=== PATIENT | female | born 1940 | race Caucasian/White ===

== ENCOUNTER → 2023-09-01 14:15 | Outpatient (REF) | payer MEDICARE, OTHER, SELFPAY | LOC: REG 14:15 | PROVIDERS: ATTENDING PHYSICIAN Internal Medicine | DX: E10.65 Type 1 diabetes mellitus with hyperglycemia (principal) | CPT/HCPCS: 36415; 83036 ==

== ENCOUNTER → 2023-12-14 08:40 | Outpatient (REF) | payer MEDICARE, OTHER, SELFPAY ==
[2023-12-14 11:55] LABS: ALT (SGPT) 20 U/L (0-35); AST (SGOT) 24 U/L (14-36); Albumin 4.3 g/dl (3.5-5.0); Alkaline Phosphatase 101 U/L (38-126); Blood Urea Nitrogen 21 mg/dl (7-17); Calcium 9.8 mg/dl (8.4-10.2); Carbon Dioxide 24 mmol/L (22-30); Chloride 102 mmol/L (98-107); Glucose 360 mg/dl (70-99); HDL Cholesterol 97 mg/dl; LDL Cholesterol, Calculated 53 mg/dl; Potassium 4.9 mmol/L (3.5-5.1); Sodium 135 mmol/L (135-145); Total Bilirubin 0.6 mg/dl (0.2-1.3); Total Cholesterol 168 mg/dl (50-199); Total Protein 7.1 g/dl (6.3-8.2); Triglyceride 92 mg/dl (10-149); Very Low Density Lipoprotein 18 mg/dl (0-30); eGFR > 60.00
[2023-12-14 14:37] LABS: Glycohemoglobin (HgbA1c) 9.7 % (4.0-5.6)
== END ==
LOC: REG 08:40
PROVIDERS: ATTENDING PHYSICIAN Internal Medicine
DX: E11.3213 Type 2 diabetes mellitus with mild nonproliferative diabetic retinopathy with macular edema, bilateral (principal); I25.10 Atherosclerotic heart disease of native coronary artery without angina pectoris
CPT/HCPCS: 36415; 80053; 80061; 83036

== ENCOUNTER → 2024-03-28 10:03 | Outpatient (REF) | payer MEDICARE, OTHER, SELFPAY ==
[2024-03-28 11:56] LABS: Glycohemoglobin (HgbA1c) 10.7 % (4.0-5.6)
== END ==
LOC: REG 10:03
PROVIDERS: ATTENDING PHYSICIAN Internal Medicine
DX: E10.69 Type 1 diabetes mellitus with other specified complication (principal); Z79.4 Long term (current) use of insulin
CPT/HCPCS: 36415; 83036

== ENCOUNTER → 2024-06-28 07:40 | Outpatient (REF) | payer MEDICARE, OTHER, SELFPAY ==
[2024-06-28 08:11] LABS: % Basophils 0.6 % (0-2); % Immature Granulocytes 0.2 % (0-0.5); % Lymphocytes 24.9 % (20.5-51.1); % Monocytes 6.9 % (1.7-9.3); % Neutrophils 64.4 % (42.2-75.2); Absolute Basophils 0.1 10^3/uL (0-0.2); Absolute Eosinophils 0.3 10^3/uL (0-0.7); Absolute Lymphocytes 2.1 10^3/uL (1.2-3.4); Absolute Monocytes 0.6 10^3/uL (0.1-0.6); Absolute Neutrophils 5.3 10^3/uL (1.4-6.5); Hematocrit 40.3 % (37.0-47.0); Hemoglobin 13.4 g/dL (12.0-16.0); Mean Corp Hgb Conc. 33.3 g/dL (33.0-37.0); Mean Corpuscular Hgb 32.8 pg (27.0-31.0); Mean Corpuscular Volume 98.5 fL (81.0-99.0); Mean Platelet Volume 9.1 fL (7.4-10.4); Nucleated Red Blood Cells % 0 %; Platelet Count 374 10^3/uL (130-400); Red Blood Cell Count 4.09 10^6/uL (4.20-5.40); Red Cell Dist. Width 13.8 % (11.5-14.5); White Blood Cell Count 8.2 10^3/uL (4.8-10.8)
[2024-06-28 08:35] LABS: Urine Albumin Negative (Neg - Trace); Urine Bilirubin Negative (Negative); Urine Character Clear (Clear); Urine Color Yellow; Urine Glucose 4+ (Negative); Urine Ketone Negative (Negative); Urine Leukocyte 2+ (Negative); Urine Nitrite Negative (Negative); Urine Occult Blood Negative (Negative); Urine Urobilinogen Negative (Neg - 1+)
[2024-06-28 08:41] LABS: Urine Hyaline Cast 0-2 /LPF (0-2)
[2024-06-28 08:42] LABS: Urine Red Blood Cell 0-2 /HPF (0-2)
[2024-06-28 08:43] LABS: Urine Bacteria Few (Negative); Urine White Cell 26-30 /HPF (0-5)
[2024-06-28 08:56] LABS: ALT (SGPT) 22 U/L (0-35); AST (SGOT) 24 U/L (14-36); Albumin 4.5 g/dl (3.5-5.0); Alkaline Phosphatase 96 U/L (38-126); Blood Urea Nitrogen 19 mg/dl (7-17); Calcium 10.1 mg/dl (8.4-10.2); Carbon Dioxide 28 mmol/L (22-30); Chloride 102 mmol/L (98-107); Glucose 221 mg/dl (70-99); Potassium 4.9 mmol/L (3.5-5.1); Sodium 138 mmol/L (135-145); Total Bilirubin 0.8 mg/dl (0.2-1.3); Total Protein 7.5 g/dl (6.3-8.2); eGFR > 60.00
[2024-06-28 08:57] LABS: Glycohemoglobin (HgbA1c) 10.8 % (4.0-5.6)
[2024-06-28 09:11] LABS: Microalbumin, Random Urine 0.8 mg/dl (0.6-1.7); Microalbumin/creatinine Ratio 11.8 mg/g
== END ==
LOC: REG 07:40
PROVIDERS: ATTENDING PHYSICIAN Internal Medicine
DX: E10.65 Type 1 diabetes mellitus with hyperglycemia (principal)
CPT/HCPCS: 80053; 81003; 81015; 82043; 82570; 83036; 85025

== ENCOUNTER 2024-08-26 20:59 | Inpatient (IN) | payer MEDICARE, OTHER, SELFPAY ==
[2024-08-26 18:28] VITALS: BP 171/76
[2024-08-26 18:32] VITALS: BMI 21.0
[2024-08-26 18:39] LABS: % Basophils 0.6 % (0-2); % Eosinophils 2.8 % (0-6); % Immature Granulocytes 0.4 % (0-0.5); % Lymphocytes 28.2 % (20.5-51.1); % Monocytes 7.3 % (1.7-9.3); % Neutrophils 60.7 % (42.2-75.2); Absolute Eosinophils 0.2 10^3/uL (0-0.7); Absolute Monocytes 0.5 10^3/uL (0.1-0.6); Absolute Neutrophils 4.3 10^3/uL (1.4-6.5); Hematocrit 36.9 % (37.0-47.0); Hemoglobin 12.7 g/dL (12.0-16.0); Mean Corp Hgb Conc. 34.4 g/dL (33.0-37.0); Mean Corpuscular Hgb 32.9 pg (27.0-31.0); Mean Corpuscular Volume 95.6 fL (81.0-99.0); Mean Platelet Volume 9.3 fL (7.4-10.4); Nucleated Red Blood Cells % 0 %; Platelet Count 327 10^3/uL (130-400); Red Blood Cell Count 3.86 10^6/uL (4.20-5.40); Red Cell Dist. Width 13.6 % (11.5-14.5); White Blood Cell Count 7.1 10^3/uL (4.8-10.8)
--- NOTE | 2024-08-26 18:41 | ED.GENMED ---
History of Present Illness
<Liam Camacho MD, Resident - Last Filed: 08/26/24 20:43>
General
Chief Complaint: Fall
Time Seen by Provider: 08/26/24 18:31
History of Present Illness
History of Present Illness:
This is an 84-year-old female who presents to the ER after a fall episode. She reports right hip pain. Patient states she was standing from a sitting position when her legs gave out and she fell on her right hip. She denies hitting her head on
the floor. She denies dizziness, syncope prior to fall. She denies loss of consciousness. Patient with a history of left hip replacement 5 years ago. She is not on any blood thinners.
Past History
<Liam Camacho MD, Resident - Last Filed: 08/26/24 20:43>
Past History
ED Past Medical History: HTN and IDDM
Social History
Tobacco: Non-smoker
Alcohol: None
Drug: None
Personal:
Living: with family
Review of Systems
<Liam Camacho MD, Resident - Last Filed: 08/26/24 20:43>
Review of Systems
All Other Systems: ROS reviewed and negative except as documented in HPI and ROS
Phy Exam
<Liam Camacho MD, Resident - Last Filed: 08/26/24 20:43>
General Physical Exam
General Presentation: well appearing and no apparent distress
Pulmonary Exam
Pulmonary Exam: lungs clear and no respiratory distress
Musculoskeletal Exam
Musculoskeletal Exam: other (On inspection, right lower extremity externally rotated. tenderness to palpitation over the mid to proximal right femur. Active and passive range of motion of the right hip and knee limited due to severe pain)
Course
<Liam Camacho MD, Resident - Last Filed: 08/26/24 20:43>
Orders/Labs/Results
Orders:
Orders
08/26/24 18:30
CR Hip - RT w/wo Pel 2-3 Vw* Urgent
Comment:
Reason For Exam: fall, injury
Include a pelvis x-ray?: Yes
08/26/24 18:32
Complete Blood Count/With Diff Urgent
Comprehensive Metabolic Panel Urgent
08/26/24 18:44
Morphine Sulfate 2 mg IV NOW ONE
08/26/24 19:59
CR Femur - Right Min 2 Vw Urgent
Comment:
Reason For Exam: right hip pain s/p fall
08/26/24 20:10
EKG [Electrocardiogram (*1)] Urgent
Reason for Study: PreOp
08/26/24 20:18
Admit/Transfer Patient As Directed
Co-Sign Provider:
Level of Care: Inpatient admission
Assign to:: Medical/Surgical
Physician / Group: Gurvinder
Diagnosis: Right Hip Fracture
Reason for Hospitalization: Hip Fracture
Expected length of stay greater than two midnights?: Yes
ELOS- Estimated Length of Stay in days: 3
I certify the patient meets the requirements for IP care: Yes
08/26/24 20:19
PRN Pain Medication Management As Directed
May give lesser potent ordered pain med per pt: Yes
preference::
Protocol:: Medication orders for pain may be administered in a
manner that supports deferring to patient preference
when the pt is:
- Requesting an ordered lesser potent pain medication.
Least to most potent pain medications are defined
as: acetaminophen < NSAID < tramadol < opioids
(morphine, oxycodone, hydromorphone).
- Requesting a lesser dose of the same medication IF
ORDERED.
- Requesting a less intrusive route of administration
if both routes are prescribed by the provider (PO <
IV).
08/26/24 20:20
Code Status As Directed
Resuscitation Status: Full Code
08/26/24 22:00
Insulin Glargine Lantus [Lantus] 6 units Subcutaneous Insulin Syringe [Syringe-Insulin] 0 unit SC HS
Abnormal Lab Results
08/26/24
18:32
RBC 3.86 L 10^6/uL
(4.20-5.40)
Hct 36.9 L %
(37.0-47.0)
MCH 32.9 H pg
(27.0-31.0)
BUN 22 H mg/dl
(7-17)
Glucose 207 H mg/dl
(70-99)
08/26/24 18:32
08/26/24 18:32
Vital Signs
Initial and Last Documented VS:
Initial Vital Signs
Temp Pulse Resp BP Pulse Ox
97.5 F 86 18 171/76 96
08/26/24 18:28 08/26/24 18:28 08/26/24 18:28 08/26/24 18:28 08/26/24 18:28
Last Documented Vital Signs
Temp Pulse Resp BP Pulse Ox
97.5 F 86 18 171/76 96
08/26/24 18:28 08/26/24 18:28 08/26/24 18:28 08/26/24 18:28 08/26/24 18:28
<Pilo Copeland MD - Last Filed: 08/26/24 18:53>
Orders/Labs/Results
Orders:
Orders
08/26/24 18:30
CR Hip - RT w/wo Pel 2-3 Vw* Urgent
Comment:
Reason For Exam: fall, injury
Include a pelvis x-ray?: Yes
08/26/24 18:32
Complete Blood Count/With Diff Urgent
Comprehensive Metabolic Panel Urgent
08/26/24 18:44
Morphine Sulfate 2 mg IV NOW ONE
08/26/24 19:59
CR Femur - Right Min 2 Vw Urgent
Comment:
Reason For Exam: right hip pain s/p fall
08/26/24 20:10
EKG [Electrocardiogram (*1)] Urgent
Reason for Study: PreOp
08/26/24 20:18
Admit/Transfer Patient As Directed
Co-Sign Provider:
Level of Care: Inpatient admission
Assign to:: Medical/Surgical
Physician / Group: Gurvinder
Diagnosis: Right Hip Fracture
Reason for Hospitalization: Hip Fracture
Expected length of stay greater than two midnights?: Yes
ELOS- Estimated Length of Stay in days: 3
I certify the patient meets the requirements for IP care: Yes
08/26/24 20:19
PRN Pain Medication Management As Directed
May give lesser potent ordered pain med per pt: Yes
preference::
Protocol:: Medication orders for pain may be administered in a
manner that supports deferring to patient preference
when the pt is:
- Requesting an ordered lesser potent pain medication.
Least to most potent pain medications are defined
as: acetaminophen < NSAID < tramadol < opioids
(morphine, oxycodone, hydromorphone).
- Requesting a lesser dose of the same medication IF
ORDERED.
- Requesting a less intrusive route of administration
if both routes are prescribed by the provider (PO <
IV).
08/26/24 20:20
Code Status As Directed
Resuscitation Status: Full Code
08/26/24 22:00
Insulin Glargine Lantus [Lantus] 6 units Subcutaneous Insulin Syringe [Syringe-Insulin] 0 unit SC HS
Abnormal Lab Results
08/26/24
18:32
RBC 3.86 L 10^6/uL
(4.20-5.40)
Hct 36.9 L %
(37.0-47.0)
MCH 32.9 H pg
(27.0-31.0)
BUN 22 H mg/dl
(7-17)
Glucose 207 H mg/dl
(70-99)
08/26/24 18:32
08/26/24 18:32
Vital Signs
Initial and Last Documented VS:
Initial Vital Signs
Temp Pulse Resp BP Pulse Ox
97.5 F 86 18 171/76 96
08/26/24 18:28 08/26/24 18:28 08/26/24 18:28 08/26/24 18:28 08/26/24 18:28
Last Documented Vital Signs
Temp Pulse Resp BP Pulse Ox
97.5 F 86 18 171/76 96
08/26/24 18:28 08/26/24 18:28 08/26/24 18:28 08/26/24 18:28 08/26/24 18:28
<Liam Camacho MD, Resident - Last Filed: 08/26/24 20:43>
MDM/Problems Addressed
MDM/Problems Addressed:
84-year-old female who presents to the ER after a fall episode. She reports right hip pain. Patient states she was standing from a sitting position when her legs gave out and she fell on her right hip. On physical examination, right lower
extremity externally rotated. Will evaluate with an x-ray of the hip and pelvis. Pain management with IV morphine.
Update; x-ray of the hip shows intertrochanteric fracture of the proximal right femur. Will admit patients. Discussed with orthopedics (Javed Ham), likely plan for surgery tomorrow
<Liam Camacho MD, Resident - Last Filed: 08/26/24 20:43>
*Critical Care Note
Total Time (30-74mins, 75-104mins- exclusive of procedures): Not Applicable
ED Attending Note
<Liam Camacho MD, Resident - Last Filed: 08/26/24 20:43>
-
Portions of this chart may have been created with voice recognition software.� Occasional wrong word or��sound alike� substitutions may have occurred due to the inherent limitations of voice recognition software.
<Pilo Copeland MD - Last Filed: 08/26/24 18:53>
ED Attending Note
Patient seen and examined by attending physician: Yes
I performed a history and physical exam of patient and discussed management with resident, I reviewed resident's note and agree with documented findings and plan of care.: Yes
ED Attending Note:
84-year-old female legs gave out from a sitting position landing on her right hip. No syncope no chest pain no shortness of breath no head injury or other complaint. Unable to bear weight secondary to pain.
On exam patient is nontoxic in no distress. She has slight hours rotation to the right leg with some questionable minimal shortening. She is in no respiratory distress. No chest wall tenderness. She normocephalic/atraumatic. Neck is nontender.
Other extremities are unremarkable. She is good lower extremity strength.
She also has tenderness over the greater trochanter. Pelvis is stable.
High suspicion for hip fracture right hip. Workup in progress. Pain management hip x-ray.
Discharge Plan
Departure
Patient Disposition: Admit
Date of Disposition: 08/26/24
Time of Disposition: 19:57
Presentation/result/management discussed w/ accepting MD/DO: Hospitalist
Discharge Problem:
Right hip fracture
Prescriptions:
No Action
cholecalciferol (vitamin D3) 2,000 UNIT tablet
2,000 unit PO DAILY
Patient Comments:
Pt does not know brand or dose.
carvedilol 3.125 MG tablet
3.125 mg PO BID Qty: 60 6RF
aspirin 81 MG tablet,chewable
81 mg PO DAILY Qty: 30 0RF
lisinopril 2.5 MG tablet
2.5 mg PO DAILY Qty: 30 6RF
insulin asp prt-insulin aspart [Novolog Mix 70-30 U-100 Insuln] 100 unit/mL (70-30) Solution
16 unit SC DAILY
insulin asp prt-insulin aspart [Novolog Mix 70-30 U-100 Insuln] 100 unit/mL (70-30) solution
10 unit SC QPM
rosuvastatin 5 mg tablet
5 mg PO QPM
Referrals:
Phan Barragan MD [Family Provider] -
Interventions
Interventions:
*Risk Screen - Suicide Last Done: 08/26/24 18:29
*General Assessment Last Done: 08/26/24 18:29
*Neglect/Abuse Screening Last Done: 08/26/24 18:29
*ED- Fall Risk Assessment Last Done: 08/26/24 18:29
*ED COVID-19 Vaccine History Last Done: 08/26/24 18:29
ED-Musculoskeletal Assessment Last Done: 08/26/24 18:41
ED- Neurological Assessment Last Done: 08/26/24 18:31
ED-Skin Assessment Last Done: 08/26/24 18:41
Discharge Date and Time
Print Language: CITIZEN OF [place]
[2024-08-26 18:56] LABS: ALT (SGPT) 22 U/L (0-35); AST (SGOT) 23 U/L (14-36); Albumin 4.6 g/dl (3.5-5.0); Alkaline Phosphatase 88 U/L (38-126); Blood Urea Nitrogen 22 mg/dl (7-17); Calcium 9.7 mg/dl (8.4-10.2); Carbon Dioxide 23 mmol/L (22-30); Chloride 105 mmol/L (98-107); Estimated Creatinine Clearance 44 ml/min; Glucose 207 mg/dl (70-99); Potassium 4.4 mmol/L (3.5-5.1); Sodium 140 mmol/L (135-145); Total Bilirubin 0.5 mg/dl (0.2-1.3); Total Protein 7.5 g/dl (6.3-8.2); eGFR > 60.00
[2024-08-26] MEDS: MORPHINE SULFATE 2 MG IV (18:58)
--- NOTE | 2024-08-26 19:00 | EDRN ---
Report received, patient given pain medication and then placed on bedpan to urinate and have a bowl movement, family at bedside at this time.
--- NOTE | 2024-08-26 20:27 | HPS.HSE ---
Addendum entered and electronically signed by Sree Hollins DO 08/26/24 20:58:
Patient seen and examined independently. Agree with findings and plan as set forth by Sosa Stewart PA-C.
Patient is an 84y F with PMH significant for ASCVD, DM-I and osteoporosis s/p 5 years of Fosamax who presents to ED complaining of R hip pain s/p fall at home. Patient states that she stood and her RLE 'gave out' causing her to fall. No
prodrome of lightheadedness, dizziness, chest pain or dyspnea. No recent illness, cough, fevers / chills, etc. Patient noted pain in the R hip / groin after the fall. She had a similar episode about 5 yrs ago in [facility]. Underwent L SHIRA at
[facility] at that time.
Ass:
Right Hip Fracture
Fall at Home
ASCVD
DM-I
Plan:
Admit for further evaluation and treatment.
Pain control / supportive care overnight.
EKG is unremarkable and much improved from prior tracings (from her [facility] admission in 2019).
Patient is at increased risk for complications due to CAD, DM-I, etc.
Benefits of planned procedure outweigh these potential risks and patient is OK to proceed without additional pre-op evaluation(s).
Post-op care per Ortho.
Change 70/30 to basal insulin + SSI. Adjust dosing as needed post-op / when diet resumed.
Continue ASA uninterrupted.
Original Note:
Family Physician
-
Family Physician: Phan Barragan
Chief Complaint
-
Right Hip Pain
History of Present Illness
Patient is a 84 y/o female past medical history of CAD, IDDM, and osteoporosis with prior left hip fracture who presents with a fall and right hip pain. Patient stood up from a chair and she notes her leg just gave out and she fell. She denies
hitting her head during the event, but is complaining about right hip pain. She reports event is similar to when she broke her left hip several years ago.
Medical History
Past Medical History
Past Medical History: Reports Other
Additional Past Medical History:
Coronary Artery Disease s/p RCA Stent 2019
Diabetes Mellitus, Type I
Osteoporosis
Past Surgical History: Reports Other
Additional Past Surgical History:
Left Hip Replacement
Social History
Tobacco: Non-smoker
Alcohol: None
Personal:
Living: With Family
Family History
Family History: Not pertinent
Allergies / Home Medications
Allergies reflects when Allergies were last updated in [employer].
Home Medications with original date entered in [employer]
Allergy/Medication List:
Allergies
Allergy/AdvReac Type Severity Reaction Status Date / Time
bacitracin Allergy Unknown Verified 08/13/20 15:12
[From Neosporin
([id number])]
neomycin Allergy Unknown Verified 08/13/20 15:12
[From Neosporin
([id number])]
polymyxin B Allergy Unknown Verified 08/13/20 15:12
[From Neosporin
([id number])]
Home Medications
cholecalciferol (vitamin D3) 50 mcg (2,000 unit) tablet 2,000 unit PO DAILY 08/05/18
aspirin 81 mg chewable tablet 81 mg PO DAILY ##30 08/07/18
carvedilol 3.125 mg tablet 3.125 mg PO BID ##60 08/07/18
lisinopril 2.5 mg tablet 2.5 mg PO DAILY ##30 08/07/18
insulin aspar prt-insulin aspart 100 unit/mL (70-30) subcutaneous soln (Novolog Mix 70-30 U-100 Insuln) 10 unit SC QPM 08/26/24
insulin aspar prt-insulin aspart 100 unit/mL (70-30) subcutaneous soln (Novolog Mix 70-30 U-100 Insuln) 16 unit SC DAILY 08/26/24
rosuvastatin 5 mg tablet 5 mg PO QPM 08/26/24
Review of Systems
-
History Source: Patient
A 12 point ROS was completed and negative except as noted: Yes
Constitutional: Denies Fever or Chills
Respiratory: Denies Cough or Trouble Breathing
Cardiac: Denies Chest Pain or Palpitations
Abdomen/GI: Denies Abdominal Pain, Nausea, Vomiting, Diarrhea or Constipated
Musculoskeletal: Reports See HPI
Physical Exam
Vital Signs
Vital Signs
Temp Pulse Resp BP Pulse Ox
97.5 F 86 18 171/76 96
08/26/24 18:28 08/26/24 18:28 08/26/24 18:28 08/26/24 18:28 08/26/24 18:28
Physical Exam
General: Well Developed, Well Nourished and No Apparent Distress
HEENT: NormoCephalic, Anicteric, Moist mucous membranes and Atraumatic
Respiratory: Clear and Non Labored Respirations; No Wheezes, Rales or Rhonchi
Cardiac: S1/S2 and Regular Rhythm; No Murmur
GI: Soft, Non Tender, Non Distended and Normal Bowel Sounds
Rectal: Deferred by Provider
Musculoskeletal: No Clubbing, No Cyanosis, No Edema and Other (RLE shortened and externally rotated)
Skin: Warm and Dry; No Rash
Neuro: Awake, Alert, Oriented and Nonfocal/grossly intact
Psych: Calm
Laboratory Results
-
08/26/24 18:32
08/26/24 18:32
Laboratory Results
Total Bilirubin 0.5 mg/dl (0.2-1.3) 08/26/24 18:32
AST 23 U/L (14-36) 08/26/24 18:32
ALT 22 U/L (0-35) 08/26/24 18:32
Alkaline Phosphatase 88 U/L (38-126) 08/26/24 18:32
Data Reviewed
-
Diagnostic Radiology: Report Reviewed by me
Lab Data: Labs Reviewed by me
Impression/Plan
-
Right Hip Fracture
-Consult Ortho
-NPO after midnight for possible OR tomorrow
-Continue pain control
Coronary Artery Disease s/p RCA stent 2018
-Continue aspirin
-Continue BB, NELSON and Statin
Diabetes Mellitus, Type II
-Transition NovoLog 70/30 to Lantus as patient will be NPO
-Give Lantus 6 units tonight
-Monitor sugars and continue coverage insulin
DVT proph: SCDs
Code Status: Full Code
--- NOTE | 2024-08-26 20:42 | EDRN ---
Dr. Hollins at bedside working on admission
[2024-08-26 20:52] VITALS: BP 133/56
--- NOTE | 2024-08-26 21:01 | EDRN ---
Patient provided with lunch box to eat, NPO at midnight
[2024-08-26 21:41] VITALS: BP 124/65; BMI 20.7
[2024-08-26] MEDS: DILAUDID 0.25 MG IV (22:28)
[2024-08-26] MEDS: LANTUS 0.06 UNITS SC (23:11)
[2024-08-26 23:14] VITALS: BP 127/64
[2024-08-27] VITALS (10 sets, daily range): BP systolic 96–144; BP diastolic 44–79; BMI 20.8
--- NOTE | 2024-08-27 00:51 | PTCARENOTE ---
21:30 pt rec'vd from ED dx r hip fx. Pt aaox3 able to make needs known, r hip with trace edema ext rotated, it was explained no bruising noted at this time however there may be bruising developing, vs WNL, pt is non wt bearing to right purewick in
place .
[2024-08-27 05:41] LABS: Glucose - Point of Care 369 mg/dl (70-99)
[2024-08-27] MEDS: NOVOLOG FLEXPEN-MODERATE RESISTANCE 9 UNITS SC (07:13)
[2024-08-27] MEDS: ZESTRIL 2.5 MG PO (08:03)
[2024-08-27] MEDS: LOW STRENGTH ASPIRIN 81 MG PO (08:03)
[2024-08-27] MEDS: COREG 3.125 MG PO (08:03)
--- NOTE | 2024-08-27 08:04 | W.PN.UPDATE ---
Update Note
Progress Note Update
Patient seen and examined this morning. Chart reviewed
84-year-old female with diabetes with right intertrochanteric femur fracture
Nonweightbearing right lower extremity
N.p.o.
Please hold anticoagulation
Will discuss with primary service regarding blood glucose optimization in preparation for OR
Medical management per primary team
2 OR today pending or availability and medical clearance
Formal consult note to follow
[2024-08-27] MEDS: NOVOLOG FLEXPEN 10 UNITS SC (08:23)
[2024-08-27] MEDS: LANTUS 0.05 UNITS SC (08:39)
--- NOTE | 2024-08-27 08:47 | PN.DE.MGMTRT ---
Insulin Management
- -
08/27/2024: Diabetes Management Consult
84 year old female with PMH: CAD, Osteoporosis, hx of L hip fx s/p fall, and T1DM. Pt presented to the ED complaining of R hip pain s/p fall at home.
She was taking 70/30 [id number] units in AM and 10 units in PM. Last A1C was 10.8% on 06/28/24. Cr 0.8, eGFR >60.
Pt was Dx with T1DM at the age of 18.
Pt is awake, alert, oriented, resting in bed in mild discomfort from hip pain, no specific complaints, able to discuss diabetes care plan.
She reports that she dose not monitor her blood sugars at home. She has been offered a glucose monitor but has declined it stating that ' I am 84 years old, I don't really want to stress myself with poking my finger.
She states that she has learned over the years, not to stress about lowering her blood sugars and that she becomes symptomatic with diaphoresis when her blood sugar gets close to 200. Recommended pt get a script for a CGM from her PCP.
Pt is NPO for OR, she is noted for Hyperglycemia as high as 400 V this morning. Pt received Lantus 5 units @ HS last night, Dr. Hernandez has ordered her an additional 5 units of Lantus this morning and 10 units of aspart.
Glucose has improved from 400 to 215 after aspart. Extensively discussed with pt increased risk of diabetes related complications and emphasized optimal glucose control to promote wound healing especially in the post op period.
Will resume her OP regimen NovoLog 70/30, 10 units tonight post-op if medically stable and diet has been resumed and 16 units tomorrow morning.
Will closely monitor glucose trend while NPO and make further adjustments to current regimen if necessary.
Diabetes History
- -
Type of Diabetes: 1
Pre-Admission Diabetes Regimen
08/26/24
18:32
Creatinine 0.8
Insulin Pump Settings
IP Diabetes Regimen
08/26/24 08/27/24
18:32 05:40
Glucose 207 H
POC Glucose 369 H
Patient Education
[2024-08-27 08:54] LABS: Hematocrit 35.5 % (37.0-47.0); Hemoglobin 12.2 g/dL (12.0-16.0); Mean Corp Hgb Conc. 34.4 g/dL (33.0-37.0); Mean Corpuscular Hgb 32.7 pg (27.0-31.0); Mean Corpuscular Volume 95.2 fL (81.0-99.0); Mean Platelet Volume 10.2 fL (7.4-10.4); Platelet Count 344 10^3/uL (130-400); Red Blood Cell Count 3.73 10^6/uL (4.20-5.40); Red Cell Dist. Width 13.6 % (11.5-14.5); White Blood Cell Count 13.6 10^3/uL (4.8-10.8)
[2024-08-27 09:11] LABS: Blood Urea Nitrogen 21 mg/dl (7-17); Calcium 9.5 mg/dl (8.4-10.2); Carbon Dioxide 23 mmol/L (22-30); Chloride 103 mmol/L (98-107); Estimated Creatinine Clearance 42 ml/min; Glucose 400 mg/dl (70-99); Potassium 5.8 mmol/L (3.5-5.1); Sodium 137 mmol/L (135-145); eGFR > 60.00
[2024-08-27 10:03] LABS: Glucose - Point of Care 215 mg/dl (70-99)
--- NOTE | 2024-08-27 11:54 | CM ---
CM following re: discharge planning.
Reviewed pt's chart, met with pt.
Pt is an 84 year old female admitted with primary dx of Right Hip Fracture. OR today.
Pt reports she lives with 2SH, 2 steps to enter, stays on the first floor. Pt reports she has son and he lives in [place]. Pt described herself as independent in all areas [employer]. Pt is aware of OR today and pt stated she knows she needs a short
term rehabilitation prior to returning back home. Pt is requested [facility] as number 1 choice. Alternative: [facility] or [facility]
CM will make a referral to [facility], [facility] and [facility] after surgery and PT/OT evaluations.
PCP: Hakan Puckett
Pharmacy: [facility].
D/C plan: Plan A: [facility]; Plan B: [facility] or [facility].
CM will follow with discharge plan updates as hospitalization progresses
--- NOTE | 2024-08-27 11:59 | W.PN.HOSP.TC ---
Today's Communication/Plan
-
await repeat glucose level
tentative OR today
Assessment / Plan
Assessment / Plan
Assessment:
Mechanical Fall
R hip fracture, acute, traumatic
- Xray: intertrochanteric fracture of the right hip
- continue pain control
- Orthopedics consulted; for OR today
- benefits of procedure outweigh risks, can proceed with surgery at intermediate risk, without additional testing
Type 1 diabetes, uncontrolled
- BS 369, goal is <200 for surgery; repeat check pending at noon
- continue basal/bolus insulin
- [employer] team consulted
Coronary Artery Disease s/p RCA stent 2018
- continue aspirin/BB/NELSON/Statin
DVT ppx: SCDs
Code: Full
Anticipated Discharge: > 48 hours
Subjective/Interval History
-
Date of Service: August 27, 2024
resting comfortably, no complaints
Objective Data
-
Labs:
Laboratory Results
08/27/24 08/27/24 08/27/24
05:33 06:00 08:06
WBC 13.6 H Cancelled
Hgb 12.2 Cancelled
Hct 35.5 L Cancelled
Plt Count 344 Cancelled
Sodium 137
Potassium 5.8 H D
Chloride 103
Carbon Dioxide 23
BUN 21 H
Creatinine 0.8
Glucose 400 H
Calcium 9.5
Vital Signs:
Vital Signs
Temp Pulse Resp BP Pulse Ox
97.9 F 106 17 144/70 96
08/27/24 07:07 08/27/24 08:03 08/27/24 07:07 08/27/24 08:03 08/27/24 07:07
I&O
08/26/24 08/27/24 08/28/24
06:59 06:59 06:59
Intake Total 0 / 0
Balance 0 / 0
Physical Exam
-
General: No Apparent Distress
HEENT: Normocephalic and Atraumatic
Respiratory: Negative Wheezes
Cardiac: Regular Rhythm and S1/S2
GI: Soft and Nontender
Musculoskeletal: Other (RLE shortened and externally rotated)
Neuro: AO x 3
Psych: Calm
Data Reviewed
-
Total Time Spent with Patient (in minutes): 42
Labs: Labs Reviewed by me
[2024-08-27 12:02] LABS: Glucose - Point of Care 128 mg/dl (70-99)
[2024-08-27] MEDS: NOVOLOG FLEXPEN-MODERATE RESISTANCE SC (12:35)
--- NOTE | 2024-08-27 14:30 | PTCARENOTE ---
Telephone report given to SKEIN YARN DYERLAURA Centeno, received approval for patient's request to be sent with hear aids (and storage cup); patient gave ring to her ; Transport picked up patient in bed @14:30; and son at bedside and given directions
to [facility] waiting room with cell phone.
[2024-08-27 14:56] LABS: Glucose - Point of Care 182 mg/dl (70-99)
--- NOTE | 2024-08-27 15:06 | CON.ORTHO ---
Consultation
-
Date/Time Consultation Performed: 08/27/2024 730 AM
Consultation - Orthopedics
History
84-year-old female with history of type 1 diabetes presented to the emergency department status post fall with complaints of right hip pain and inability to bear weight. She was subsequently admitted to the hospitalist service. Orthopedics is
consulted for further evaluation and treatment. This morning patient is complaining pain more localized to the right groin. Pain is made worse with direct palpation affected area with attempted ambulation. She reports she fell while in [place]
[facility] approximately 5 years ago and underwent left total hip arthroplasty for fracture at [facility]. She reports that yesterday she got up from a chair at home and her right leg gave out on her and fell.
Allergies / Home Medications
Past medical history: Coronary artery disease diabetes osteoporosis
Past surgical history: Left total hip arthroplasty, stent placement cardiac
Family history: Not pertinent
Social history: Lives at home,
Allergy/AdvReac Type Severity Reaction Status Date / Time
bacitracin Allergy Unknown Verified 08/13/20 15:12
[From Neosporin
([id number])]
neomycin Allergy Unknown Verified 08/13/20 15:12
[From Neosporin
([id number])]
polymyxin B Allergy Unknown Verified 08/13/20 15:12
[From Neosporin
([id number])]
�Medication �Instructions �Recorded
cholecalciferol (vitamin D3) 50 2,000 unit PO DAILY 08/05/18
mcg (2,000 unit) tablet
aspirin 81 mg chewable tablet 81 mg PO DAILY ##30 08/07/18
carvedilol 3.125 mg tablet 3.125 mg PO BID ##60 08/07/18
lisinopril 2.5 mg tablet 2.5 mg PO DAILY ##30 08/07/18
insulin aspar prt-insulin aspart 10 unit SC QPM 08/26/24
100 unit/mL (70-30) subcutaneous
soln (Novolog Mix 70-30 U-100
Insuln)
insulin aspar prt-insulin aspart 16 unit SC DAILY 08/26/24
100 unit/mL (70-30) subcutaneous
soln (Novolog Mix 70-30 U-100
Insuln)
rosuvastatin 5 mg tablet 5 mg PO QPM 08/26/24
Vital Signs / Lab Results
Temp Pulse Resp BP Pulse Ox
97.9 F 106 17 144/70 96
08/27/24 07:07 08/27/24 08:03 08/27/24 07:07 08/27/24 08:03 08/27/24 07:07
08/27/24 08:06
08/27/24 06:00
10 point review systems reviewed and negative unless otherwise stated
General: Pleasant, no acute distress at rest
Musculoskeletal right lower extremity
Skin intact, no erythema or ecchymotic staining
Extremity shortened externally rotated
Tenderness palpation over groin or lateral trochanteric flare
No palpable ipsilateral knee effusion
Positive EHL, FHL, ankle dorsiflexion, plantarflexion
Brisk cap refill
No other areas of bony tenderness palpation or crepitation of long bones or joints
Diagnostic studies
X-rays right hip reviewed by myself show mildly displaced right intertrochanteric femur fracture
Assessment / Plan
84-year-old female history of diabetes with right intertrochanteric femur fracture. I had a long detailed discussion with the patient diagnosis and treatment options. We discussed both surgical nonsurgical options. After discussion we mutually to
proceed with insertion of cephalomedullary nail construct for fixation of right intertrochanteric femur fracture. We discussed risks benefits and alternatives to surgery. We discussed the usual expected perioperative postoperative course. No
guarantees were given. Specifically we discussed her poorly controlled diabetes with elevated blood glucose. Explained this would place her high risk of infection as well as healing complications. Blood glucose was significantly elevated this
morning. Repeat monitoring throughout the day showed improvement to the point where is acceptable to proceed to the OR.
Nonweightbearing right lower extremity
N.p.o.
Please hold anticoagulation preparation for OR
Medical management per primary team
Plan: 2 OR today for operative fixation right intertrochanteric femur fracture pending OR availability and medical clearance
--- NOTE | 2024-08-27 16:13 | OR.RPT ---
Operative Report
Operative Report
Date
August 27, 2024
Anesthesia Type:
General
Operative Indications:
Right intertrochanteric femur fracture
Operative Findings :
Same
Complications:
None
Implants:
10 mm x 125 degree Adrian short gamma nail, 95 mm cephalomedullary screw, 35 x 5 mm distal interlocking screw
Procedure and Technique:
Insertion right short cephalomedullary nail
INDICATIONS FOR PROCEDURE:
84-year-old patient presented status post mechanical fall. They were subsequently diagnosed with a peritrochanteric femur fracture. Orthopedics was consulted for further evaluation and treatment. After discussion with the patient and family,
the decision was made to proceed with operative intervention in the form of short cephalomedullary nail. A long discussion was had regarding risks and benefits of procedure. Risks include but are not limited to infection, blood loss, damage to
surrounding structures, persistent pain, loss of function, need for repeat surgery, implant cut out, periprosthetic fracture, DVT/PE and adverse risks of anesthesia. Benefits include early mobilization and fracture stabilization. After discussion
written informed consent was obtained.
OPERATIVE PROCEDURE:
The patient was seen and identified in the preoperative holding area. The operative extremity was marked and all questions were addressed with the patient. Patient was taken to the operating room and provided anesthesia by the anesthesia team.
They were placed supine on a radiolucent fracture table. The nonoperative extremity was placed in a scissored position in a well-padded fracture boot. Operative extremity was placed in a well-padded fracture boot. Biplanar fluoroscopy confirmed
appropriate reduction after axial traction, adduction and slight internal rotation of the operative extremity. Operative extremity was then prepped and draped in normal sterile fashion. Timeout was performed again identifying the operative
extremity correctly. Preoperative antibiotics were addressed.
A small incision was made several fingerbreadths proximal to the greater trochanter. Sharp dissection was carried through skin and subcutaneous tissues and deep fascial layers. Guidepin was then inserted under biplanar fluoroscopic guidance
through the tip of the greater trochanter in accordance with the implant's operative technique. This was inserted to a depth just distal to the lesser trochanter. Proximal opening reamer was then utilized. A short cephalomedullary nail was then
inserted to the appropriate depth. Trocar was then inserted through the aiming arm. Sharp dissection was then carried through skin and subcutaneous tissues as well as deep fascial layers for an additional stab incision for the cephalomedullary
screw. Guidewire was inserted through the trocar into the femoral neck and head. Appropriate position was confirmed under biplanar fluoroscopy. Attention was made to minimize the tip apex distance. Measurements were obtained for the
cephalomedullary screw. Cannulated drill was then utilized to the appropriate depth followed by the insertion of cannulated cephalomedullary screw. Appropriate final position of the screw within the confines of the femoral neck and head was
confirmed again on biplanar fluoroscopy. Setscrew was deployed. Additional trocar was then inserted through the aiming arm for the distal interlocking screw. Sharp dissection was carried through skin, subcutaneous tissues and deep fascial layers.
Appropriate length interlocking screw was then drilled and inserted. Final appropriate positioning was confirmed again on biplanar fluoroscopy. Satisfied with the extent of surgery, wounds were copiously irrigated with normal saline solution and
closed in a layered fashion utilizing 0 Vicryl for deep fascial layer, 2-0 Vicryl for subcu cutaneous layer and james for skin. Sterile dressings were applied. Anesthesia was reversed and patient was taken to the operating room in a stable
condition. Postoperative plan to include weightbearing the patient's tolerance upper extremity. Recommend DVT prophylaxis renally dosed Lovenox x 28 days. Plan to see patient back in the office in 2 weeks for repeat clinical evaluation removal
james
Disposition:
PACU stable condition
[2024-08-27 16:30] LABS: Glucose - Point of Care 159 mg/dl (70-99)
[2024-08-27 18:00] LABS: Glucose - Point of Care 193 mg/dl (70-99)
[2024-08-27] MEDS: NSS 1000 IV (18:05)
[2024-08-27] MEDS: NOVOLOG FLEXPEN-MODERATE RESISTANCE 1 UNITS SC (18:05)
[2024-08-27] MEDS: CRESTOR 5 MG PO (18:10)
[2024-08-27] MEDS: COLACE 100 MG PO (19:41)
[2024-08-27 21:04] LABS: Glucose - Point of Care 399 mg/dl (70-99)
[2024-08-27] MEDS: ANCEF 5 IV (21:23)
[2024-08-27] MEDS: LANTUS 0.06 UNITS SC (21:24)
[2024-08-27] MEDS: COREG PO (21:44)
[2024-08-28] VITALS (7 sets, daily range): BP systolic 76–124; BP diastolic 44–68; PULSE 102–105; O2SAT 98–100; BMI 22.5
[2024-08-28] MEDS: ANCEF 5 IV (05:23)
[2024-08-28 06:34] LABS: Glucose - Point of Care 443 mg/dl (70-99)
[2024-08-28 06:57] LABS: Blood Urea Nitrogen 29 mg/dl (7-17); Calcium 8.7 mg/dl (8.4-10.2); Carbon Dioxide 23 mmol/L (22-30); Chloride 102 mmol/L (98-107); Estimated Creatinine Clearance 34 ml/min; Glucose 454 mg/dl (70-99); Potassium 4.6 mmol/L (3.5-5.1); Sodium 137 mmol/L (135-145)
[2024-08-28] MEDS: NOVOLOG FLEXPEN-MODERATE RESISTANCE 11 UNITS SC (06:57)
[2024-08-28 07:13] LABS: Hematocrit 27.6 % (37.0-47.0); Hemoglobin 9.7 g/dL (12.0-16.0); Mean Corp Hgb Conc. 35.1 g/dL (33.0-37.0); Mean Corpuscular Hgb 33.6 pg (27.0-31.0); Mean Corpuscular Volume 95.5 fL (81.0-99.0); Platelet Count 299 10^3/uL (130-400); Red Blood Cell Count 2.89 10^6/uL (4.20-5.40); Red Cell Dist. Width 13.9 % (11.5-14.5); White Blood Cell Count 14.9 10^3/uL (4.8-10.8)
--- NOTE | 2024-08-28 08:00 | PN.DE.MGMTRT ---
Insulin Management
- -
08/28/2024: Diabetes Management Consult Follow up
Patient admitted with R hip pain s/p mechanical fall. PMH: CAD, Osteoporosis, hx of L hip fx s/p fall, and T1DM. She was taking 70/30 insulin 16 units in AM and 10 units in PM. Last A1C was 10.8% on 06/28/24. Cr 0.8, eGFR >60.
Pt was Dx with T1DM at the age of 18.
POD 1 s/p nail repair R femur. Pt is awake, alert, oriented, resting in bed in mild discomfort from hip pain, no specific complaints, able to discuss diabetes care plan.
Yesterday she stated that she dose not monitor her blood sugars at home. She has been offered a glucose monitor but has declined it stating that ' I am 84 years old, I don't really want to stress myself with poking my finger. Today discussed the
importance of glucose control and the importance of healing and she agreed to new meter. Provided and instructed on use of Contour Next meter.
Patient glucose range 182 to 400. Patient received lantus 6 units and moderate corrective insulin.
Will resume 70/30 novolog this AM 15 units BID with moderate corrective. May require increase of AM 70/30.
Discussed with nurse.
Will follow.
Diabetes History
- -
Type of Diabetes: 1
Pre-Admission Diabetes Regimen
08/27/24 08/28/24
06:00 05:48
Creatinine 0.8 1.0
Lab Results
Hemoglobin A1c 10.0 % (4.0-5.6) H 08/27/24 05:33
Insulin Pump Settings
IP Diabetes Regimen
08/27/24 08/27/24 08/27/24
06:00 10:02 12:00
Glucose 400 H
POC Glucose 215 H 128 H
08/27/24 08/27/24 08/27/24
14:46 16:29 17:59
Glucose
POC Glucose 182 H 159 H 193 H
08/27/24 08/28/24 08/28/24
21:02 05:48 06:32
Glucose 454 H*
POC Glucose 399 H 443 H
Meal type: Lunch
Meal type: Breakfast
Patient Education
[2024-08-28] MEDS: ZESTRIL 2.5 MG PO (08:27)
[2024-08-28] MEDS: LOVENOX 40 MG SC (08:28)
[2024-08-28] MEDS: LOW STRENGTH ASPIRIN 81 MG PO (08:28)
[2024-08-28] MEDS: COREG 3.125 MG PO (08:28)
[2024-08-28] MEDS: COLACE PO ×2 (08:36→20:53)
[2024-08-28] MEDS: NSS 1000 IV (08:47)
[2024-08-28] MEDS: NOVOLOG MIX 70/30 FLEXPEN 15 UNITS SC ×2 (08:59→17:14)
[2024-08-28 09:31] LABS: Glucose - Point of Care 348 mg/dl (70-99)
--- NOTE | 2024-08-28 11:04 | W.PN.HOSP.TC ---
Today's Communication/Plan
-
BS monitoring and insulin adjustments per diabetes team
pain control, PT/OT
follow ortho recs
Assessment / Plan
Assessment / Plan
Assessment:
Mechanical Fall
R hip fracture, acute, traumatic
- Xray: intertrochanteric fracture of the right hip
- s/p right short cephalomedullary nail on 08/27
- continue pain control
- PT/OT; WBAT
- Lovenox for DVT ppx
- follow orthopedic recs
Type 1 diabetes, uncontrolled
- continue 70/30 dosing BID
- continue SSI moderate
- A1c: 10.0%
- FEED MILL SUPERVISOR following
Hyperkalemia - resolved
Coronary Artery Disease s/p RCA stent 2018
- continue aspirin/BB/NELSON/Statin
DVT ppx: Lovenox
Code: Full
Anticipated Discharge: > 48 hours
Subjective/Interval History
-
Date of Service: August 28, 2024
resting comfortably, no complaints at present
Objective Data
-
Labs:
Laboratory Results
08/28/24
05:48
WBC 14.9 H
Hgb 9.7 L D
Hct 27.6 L
Plt Count 299
Sodium 137
Potassium 4.6
Chloride 102
Carbon Dioxide 23
BUN 29 H
Creatinine 1.0
Glucose 454 H*
Calcium 8.7
Vital Signs:
Vital Signs
Temp Pulse Resp BP Pulse Ox
98.2 F 113 16 124/67 95
08/28/24 07:06 08/28/24 08:28 08/28/24 07:06 08/28/24 08:28 08/28/24 07:06
I&O
08/27/24 08/28/24 08/29/24
06:59 06:59 06:59
Intake Total 0 1779
Balance 1779
Physical Exam
-
General: No Apparent Distress
HEENT: Normocephalic and Atraumatic
Respiratory: Negative Wheezes
Cardiac: Regular Rhythm
GI: Soft
Musculoskeletal: No Edema
Neuro: AO x 3
Psych: Calm
Data Reviewed
-
Total Time Spent with Patient (in minutes): 42
Labs: Labs Reviewed by me
[2024-08-28 12:06] LABS: Glucose - Point of Care 284 mg/dl (70-99)
[2024-08-28] MEDS: NOVOLOG FLEXPEN-MODERATE RESISTANCE 5 UNITS SC ×2 (12:09→16:53)
--- NOTE | 2024-08-28 15:46 | CM ---
CM following re: discharge planning.
Reviewed pt's chart, met with [pt.
Pt is POD#1 s/p right short cephalomedullary nail, Mechanical Fall, R hip fracture, acute, traumatic.
PT and OT evaluations noted - short term rehab level of care recommended.
CM spoke to [facility] manufacturing coordinator [phone] and she is reviewing a case with possible admission tomorrow.
[facility] and [facility] offered a bed.
Pt is aware and she stated she will decide by tomorrow.
D/C plan: Plan A: [facility]; Plan B: [facility] or [facility].
CM will follow to assist pt with discharge to a preferred short term rehabilitation facility
[2024-08-28] MEDS: CRESTOR 5 MG PO (16:46)
[2024-08-28 16:51] LABS: Glucose - Point of Care 258 mg/dl (70-99)
--- NOTE | 2024-08-28 19:29 | W.PN.ORTHO ---
Today's Communication / Plan
-
84-year-old female postop day 1 status post cephalomedullary nail fixation right intertrochanteric femur fracture doing well
Weightbearing as tolerated right lower extremity
PT OT
Pain control
DVT prophylaxis: Recommend renally dosed Lovenox x 28 days
Medical management per primary team
Plan to follow-up outpatient myself in 2 to 3 weeks for repeat evaluation
Subjective
.
.:
Patient resting comfortably in bed. Reports that she was able to get out of bed today.
Vital Signs and Labs
.
Vital Signs and Labs:
Lab Results
08/28/24 05:48
08/28/24 05:48
Temp Pulse Resp BP Pulse Ox
97.9 F 97 16 97/53 97
08/28/24 15:03 08/28/24 15:03 08/28/24 15:03 08/28/24 15:03 08/28/24 15:03
Physical Exam
-
Musculoskeletal right lower extremity
Dressings clean dry and intact without drainage
Mild to moderate swelling right thigh
Positive EHL, FHL, ankle dorsiflexion, plantarflexion
Brisk cap refill
[2024-08-28] MEDS: COREG PO (20:54)
[2024-08-28 21:47] LABS: Glucose - Point of Care 169 mg/dl (70-99)
[2024-08-29] VITALS (7 sets, daily range): BP systolic 82–123; BP diastolic 53–71; PULSE 107; O2SAT 98–99
[2024-08-29 07:15] LABS: Hematocrit 24.9 % (37.0-47.0); Hemoglobin 8.6 g/dL (12.0-16.0); Mean Corp Hgb Conc. 34.5 g/dL (33.0-37.0); Mean Corpuscular Hgb 32.8 pg (27.0-31.0); Mean Platelet Volume 10.1 fL (7.4-10.4); Platelet Count 291 10^3/uL (130-400); Red Blood Cell Count 2.62 10^6/uL (4.20-5.40); Red Cell Dist. Width 13.9 % (11.5-14.5)
[2024-08-29 07:23] LABS: Blood Urea Nitrogen 38 mg/dl (7-17); Calcium 8.5 mg/dl (8.4-10.2); Carbon Dioxide 26 mmol/L (22-30); Chloride 104 mmol/L (98-107); Estimated Creatinine Clearance 34 ml/min; Glucose 241 mg/dl (70-99); Potassium 4.6 mmol/L (3.5-5.1); Sodium 135 mmol/L (135-145)
--- NOTE | 2024-08-29 07:36 | PN.DE.MGMTRT ---
Insulin Management
- -
08/29/2024: Diabetes Management Consult Follow up
Patient admitted with R hip pain s/p mechanical fall. PMH: CAD, Osteoporosis, hx of L hip fx s/p fall, and T1DM. She was taking 70/30 insulin 16 units in AM and 10 units in PM. Last A1C was 10.8% on 06/28/24. Cr 0.8, eGFR >60.
Pt was Dx with T1DM at the age of 18.
POD 2 s/p nail repair R femur. Pt is awake, alert, oriented, resting in bed in mild discomfort from hip pain, no specific complaints, able to discuss diabetes care plan.
Yesterday she stated that she dose not monitor her blood sugars at home. She has been offered a glucose monitor but has declined it stating that ' I am 84 years old, I don't really want to stress myself with poking my finger. Today discussed the
importance of glucose control and the importance of healing and she agreed to new meter. Provided and instructed on use of Contour Next meter.
Patient glucose range improved after 70/30 15 units but remains elevated. Fasting 241. Will increase 70/30 novolog to 20 units BID with moderate corrective insulin.
Discussed with nurse.
Will follow.
Diabetes History
- -
Type of Diabetes: 1
Pre-Admission Diabetes Regimen
08/29/24
05:40
Creatinine 1.0
Lab Results
Hemoglobin A1c 10.0 % (4.0-5.6) H 08/27/24 05:33
Insulin Pump Settings
IP Diabetes Regimen
08/28/24 08/28/24 08/28/24
09:29 12:05 16:50
Glucose
POC Glucose 348 H 284 H 258 H
08/28/24 08/29/24
21:45 05:40
Glucose 241 H
POC Glucose 169 H
Meal type: Dinner
Meal type: Lunch
Meal type: Breakfast
Amount consumed: 50%
Amount consumed: 75%
Amount consumed: 95%
Patient Education
[2024-08-29 07:51] LABS: Glucose - Point of Care 310 mg/dl (70-99)
[2024-08-29] MEDS: NOVOLOG FLEXPEN-MODERATE RESISTANCE 7 UNITS SC (07:57)
[2024-08-29] MEDS: NOVOLOG MIX 70/30 FLEXPEN 18 UNITS SC (07:59)
[2024-08-29] MEDS: ZESTRIL PO (08:01)
[2024-08-29] MEDS: COREG PO ×2 (08:02→20:02)
[2024-08-29] MEDS: COLACE 100 MG PO (08:02)
[2024-08-29] MEDS: LOVENOX 40 MG SC (08:02)
[2024-08-29] MEDS: VITAMIN D3 (cholecalciferol) 50 MCG PO (08:02)
[2024-08-29] MEDS: LOW STRENGTH ASPIRIN 81 MG PO (08:02)
--- NOTE | 2024-08-29 12:01 | W.PN.HOSP.TC ---
Today's Communication/Plan
-
hold NELSON
1 unit PRBC for symptomatic anemia
DC planning
Assessment / Plan
Assessment / Plan
Assessment:
Mechanical Fall
R hip fracture, acute, traumatic
- Xray: intertrochanteric fracture of the right hip
- s/p right short cephalomedullary nail on 08/27
- continue pain control
- PT/OT; WBAT
- Lovenox for DVT ppx
- follow orthopedic recs
symptomatic Acute blood loss (operative) anemia
- 1 unit PRBC
- follow Hb
Type 1 diabetes, uncontrolled
- continue 70/30 dosing BID
- continue SSI moderate
- A1c: 10.0%
- BUMPER AND PAINTER following
Hyperkalemia - resolved
Coronary Artery Disease s/p RCA stent 2018
- continue aspirin/BB/Statin
- NELSON held for hypotension
DVT ppx: Lovenox
Code: Full
Anticipated Discharge: > 48 hours
Subjective/Interval History
-
Date of Service: August 29, 2024
Hb 8.6 today from 12.2 on admission
symptomatic with fatigue, hypotension - agreeable to 1 unit PRBC
Objective Data
-
Labs:
Laboratory Results
08/29/24
05:40
WBC 15.0 H
Hgb 8.6 L
Hct 24.9 L
Plt Count 291
Sodium 135
Potassium 4.6
Chloride 104
Carbon Dioxide 26
BUN 38 H
Creatinine 1.0
Glucose 241 H
Calcium 8.5
Vital Signs:
Vital Signs
Temp Pulse Resp BP Pulse Ox
98.5 F 105 16 82/62 95
08/29/24 11:52 08/29/24 11:52 08/29/24 11:52 08/29/24 11:52 08/29/24 07:06
I&O
08/28/24 08/29/24 08/30/24
06:59 06:59 06:59
Intake Total 17790 / 0 780 / 780
Balance 1779 2620 / 2620 780 / 780
Physical Exam
-
General: No Apparent Distress
HEENT: Normocephalic and Atraumatic
Respiratory: Negative Wheezes
Cardiac: Regular Rhythm and S1/S2
GI: Soft
Genito-urinary: No Costovertebral Tender
Neuro: AO x 3
Psych: Calm
Data Reviewed
-
Total Time Spent with Patient (in minutes): 42
Labs: Labs Reviewed by me
[2024-08-29 12:02] LABS: Glucose - Point of Care 225 mg/dl (70-99)
[2024-08-29] MEDS: NOVOLOG FLEXPEN-MODERATE RESISTANCE 3 UNITS SC (12:02)
--- NOTE | 2024-08-29 12:08 | CM ---
CM following re: discharge planning.
Reviewed pt's chart, met with pt. CM met with pt's and pt's son late afternoon yesterday.
Pt is POD#2 s/p right short cephalomedullary nail, Mechanical Fall, R hip fracture, acute, traumatic. Per MD pt symptomatic with fatigue, hypotension, Hb 8.6 today, 1 unit PRBC.
PT and OT evaluations noted - short term rehab level of care recommended.
CM spoke to [facility] human resources coordinator Swathi [phone] and she she confirmed that pt will be accepted to [facility] when medically stable.
Both pt and her family are aware that [facility] and [facility] offered a bed and pt preferred [facility].
D/C plan: [facility] when medically stable.
CM will follow to assist pt with discharge to [facility].
--- NOTE | 2024-08-29 12:25 | PTCARENOTE ---
1 unit PRBC transfusing pt tolerating well. VS wNL, no change in physical assessment
[2024-08-29] MEDS: NOVOLOG FLEXPEN-MODERATE RESISTANCE SC (16:42)
[2024-08-29 16:43] LABS: Glucose - Point of Care 126 mg/dl (70-99)
[2024-08-29] MEDS: NOVOLOG MIX 70/30 FLEXPEN SC (16:43)
--- NOTE | 2024-08-29 16:43 | PTCARENOTE ---
blood glucose 126, pt reports she feels hypoglycemic, refused NPH stats- 'I may need about 10 or so later but if I take that now I'll be a mess'
[2024-08-29] MEDS: CRESTOR 5 MG PO (16:44)
[2024-08-29] MEDS: COLACE PO (20:02)
[2024-08-29 21:38] LABS: Glucose - Point of Care 301 mg/dl (70-99)
[2024-08-29] MEDS: NOVOLOG FLEXPEN 6 UNITS SC (22:22)
[2024-08-30] VITALS (8 sets, daily range): BP systolic 75–124; BP diastolic 39–73; PULSE 103; O2SAT 98–99
--- NOTE | 2024-08-30 07:19 | PN.DE.MGMTRT ---
Insulin Management
- -
08/30/2024: Diabetes Management Consult Follow up
Patient admitted with R hip pain s/p mechanical fall. PMH: CAD, Osteoporosis, hx of L hip fx s/p fall, and T1DM. She was taking 70/30 insulin 16 units in AM and 10 units in PM. Last A1C was 10.8% on 06/28/24. Cr 0.8, eGFR >60.
Pt was Dx with T1DM at the age of 18.
POD 3 s/p nail repair R femur. Pt is awake, alert, oriented, oob in chair, with multiple complaints including nausea, I don't think I can do rehab, I can't stand. Nurse reports patient was very flat and stated to her she just wanted to go home on
hospice. Eventually able to discuss diabetes care plan.
70/30 novolog increased yesterday to 18 units, pre lunch glucose 225, dinner glucose improved 126. Patient refused dinner 70/30 HS glucose 301.
Will continue 70/30 novolog 18 units BID, discussed importance of taking insulin with patient. Explained that because she refused her dinner insulin her bedtime and fasting glucose were both over 300. She stated that if she is less than 200 she is
low. She is unable to accept the fact that if glucose is 126 she is able to take her dinner insulin when eating a meal.
08/27 she stated that she does not monitor her blood sugars at home. She has been offered a glucose monitor but has declined it stating that ' I am 84 years old, I don't really want to stress myself with poking my finger. 08/28 discussed the importance
of glucose control and the importance of healing and she agreed to new meter. Provided and instructed on use of Contour Next meter.
Discussed with nurse.
Will follow.
Diabetes History
- -
Type of Diabetes: 1
Pre-Admission Diabetes Regimen
08/29/24
05:40
Creatinine 1.0
Lab Results
Hemoglobin A1c 10.0 % (4.0-5.6) H 08/27/24 05:33
Insulin Pump Settings
IP Diabetes Regimen
08/29/24 08/29/24 08/29/24
05:40 07:50 12:01
Glucose 241 H
POC Glucose 310 H 225 H
08/29/24 08/29/24
16:41 21:36
Glucose
POC Glucose 126 H 301 H
Meal type: Dinner
Meal type: Lunch
Meal type: Breakfast
Amount consumed: 10%
Amount consumed: 50%
Amount consumed: 75%
Patient Education
[2024-08-30 07:37] LABS: Glucose - Point of Care 348 mg/dl (70-99)
[2024-08-30 07:46] LABS: White Blood Cell Count 11.7 10^3/uL (4.8-10.8)
[2024-08-30 07:47] LABS: Hematocrit 29.9 % (37.0-47.0); Hemoglobin 10.5 g/dL (12.0-16.0); Mean Corp Hgb Conc. 35.1 g/dL (33.0-37.0); Mean Corpuscular Volume 91.2 fL (81.0-99.0); Mean Platelet Volume 10.4 fL (7.4-10.4); Platelet Count 269 10^3/uL (130-400); Red Blood Cell Count 3.28 10^6/uL (4.20-5.40); Red Cell Dist. Width 15.9 % (11.5-14.5)
[2024-08-30] MEDS: COREG 3.125 MG PO (07:55)
[2024-08-30 07:56] LABS: Blood Urea Nitrogen 32 mg/dl (7-17); Carbon Dioxide 22 mmol/L (22-30); Chloride 103 mmol/L (98-107); Estimated Creatinine Clearance 42 ml/min; Glucose 256 mg/dl (70-99); Potassium 4.4 mmol/L (3.5-5.1); Sodium 135 mmol/L (135-145); eGFR > 60.00
[2024-08-30] MEDS: COLACE PO ×2 (07:56→19:37)
[2024-08-30] MEDS: LOW STRENGTH ASPIRIN 81 MG PO (07:56)
[2024-08-30] MEDS: LOVENOX 40 MG SC (07:56)
[2024-08-30] MEDS: VITAMIN D3 (cholecalciferol) 50 MCG PO (07:56)
[2024-08-30] MEDS: NOVOLOG FLEXPEN-MODERATE RESISTANCE 7 UNITS SC (08:10)
[2024-08-30] MEDS: NOVOLOG MIX 70/30 FLEXPEN 20 UNITS SC (08:10)
[2024-08-30] MEDS: ZOFRAN 4 MG IV (08:14)
--- NOTE | 2024-08-30 08:23 | PTCARENOTE ---
during AM assessment and medication administration pt reports she doesn't want to go to rehab. pt stated 'I just want to go home and , on hospice or something, just be done.' Pt spent some time venting about frustrations with comorbidities and
chronic illness. This nurse offered support, attempted to encourage and reassure pt rehab will help her. This nurse went over complications after ortho surgery without proper rehab/therapy. Offered to call family, pt refused. offered [facility] and CM,
pt refused. attempted to gather goals/previous activities she might want to resume, pt is withdrawn and flat. Pt denies SI. Attending notified.
--- NOTE | 2024-08-30 11:15 | CM ---
Addendum entered by Ariadna Diego RN 08/30/24 15:27:
IMM reviewed.
Original Note:
Reviewed the chart notes and spoke with the patient at the bedside. PT recommending SNF not acute rehab. [facility] and [facility] can accept based on bed availability. CM continues to be available to patient/family and is monitoring medical plan for needs at
discharge.
Plan: Discharge to SNF/rehab once medically stable and bed secured. No prior auth required.
[2024-08-30 11:29] LABS: Glucose - Point of Care 212 mg/dl (70-99)
[2024-08-30] MEDS: NOVOLOG FLEXPEN-MODERATE RESISTANCE 3 UNITS SC (12:03)
--- NOTE | 2024-08-30 15:15 | W.PN.HOSP.TC ---
Today's Communication/Plan
-
IVF x 1 bag and compression therapy for + orthostatics
DC planning to SNF
Assessment / Plan
Assessment / Plan
Assessment:
Mechanical Fall
R hip fracture, acute, traumatic
- Xray: intertrochanteric fracture of the right hip
- s/p right short cephalomedullary nail on 08/27
- continue pain control
- PT/OT; WBAT
- Lovenox for DVT ppx
- follow orthopedic recs
symptomatic Acute blood loss (operative) anemia
- s/p 1 unit PRBC; Hb 10.5
- follow Hb
Orthostatic hypotension
- IVF x 1 bag
- compression therapy
Type 1 diabetes, uncontrolled
- continue 70/30 dosing BID
- continue SSI moderate
- A1c: 10.0%
- RIDER TICKET WORKER following
Hyperkalemia - resolved
Coronary Artery Disease s/p RCA stent 2018
- continue aspirin/BB/Statin
- NELSON held for hypotension
DVT ppx: Lovenox
Code: Full
Anticipated Discharge: Within 24 hours
Subjective/Interval History
-
Date of Service: August 30, 2024
denies any new complaints at present
+ orthostatics
Objective Data
-
Labs:
Laboratory Results
08/30/24
05:34
WBC 11.7 H
Hgb 10.5 L D
Hct 29.9 L
Plt Count 269
Sodium 135
Potassium 4.4
Chloride 103
Carbon Dioxide 22
BUN 32 H
Creatinine 0.8
Glucose 256 H
Calcium 8.0 L
Vital Signs:
Vital Signs
Temp Pulse Resp BP Pulse Ox
98.5 F 104 18 122/71 98
08/30/24 07:10 08/30/24 07:55 08/30/24 07:10 08/30/24 07:55 08/30/24 07:10
I&O
08/29/24 08/30/24 08/31/24
06:59 06:59 06:59
Intake Total 2620 / 2620 1510 / 1510
Balance 2620 / 2620 1510 / 1510
Physical Exam
-
General: No Apparent Distress
HEENT: Normocephalic and Atraumatic
Respiratory: Negative Wheezes
Cardiac: Regular Rhythm and S1/S2
GI: Soft and Nontender
Neuro: AO x 3
Psych: Calm
Data Reviewed
-
Total Time Spent with Patient (in minutes): 42
Labs: Labs Reviewed by me
--- NOTE | 2024-08-30 15:37 | PTCARENOTE ---
pt orthostatic with therapy, remains hypotensive with c/o dizziness. attending notified, New orders. teds placed and IVF
[2024-08-30] MEDS: NSS 1000 IV (16:13)
[2024-08-30 16:44] LABS: Glucose - Point of Care 95 mg/dl (70-99)
[2024-08-30] MEDS: NOVOLOG MIX 70/30 FLEXPEN SC (16:44)
[2024-08-30] MEDS: NOVOLOG FLEXPEN-MODERATE RESISTANCE SC (16:44)
--- NOTE | 2024-08-30 16:45 | PTCARENOTE ---
pt reported CP resolved. trops pending. pt blood glucose 95 per pt 'for me, that is murder. I can't be that low' refused insulin
[2024-08-30] MEDS: CRESTOR 5 MG PO (16:54)
--- NOTE | 2024-08-30 17:40 | W.PN.UPDATE ---
Update Note
Progress Note Update
10/02, pressure, central chest pain
Trop 6.3
EKG without evidence of STEMI- reviewed with Dr. Antonio cardiology
plan:
place tele
trend enzymes
Echo
initiated IV Heparin
Cards consult
PE-study given recent ortho surgery
family updated
--- NOTE | 2024-08-30 18:20 | PTCARENOTE ---
PTT drawn, pt to [facility]
[2024-08-30 18:33] LABS: APTT 25.6 Sec (23.4-35.0)
[2024-08-30] MEDS: HEPARIN 25000 UNITS/250 ML IV (19:31)
[2024-08-30] MEDS: COREG PO (19:37)
[2024-08-30 21:57] LABS: Glucose - Point of Care 114 mg/dl (70-99)
[2024-08-31] VITALS (42 sets, daily range): BP systolic 79–122; BP diastolic 43–94
[2024-08-31 02:08] LABS: APTT 33.6 Sec (23.4-35.0)
--- NOTE | 2024-08-31 07:45 | CON.CAR ---
Addendum entered and electronically signed by Dhaval Flores MD 08/31/24 09:26:
84-year-old woman with right hip fracture status post ORIF 08/27/2024, now with chest discomfort associated with troponin of 6.3. ECG with old inferior and possible anterior myocardial infarction, negative CT with pulmonary embolism protocol
PMH/PSH: CAD, prior WI 2018, RCA PCI as above 2018, type 1 diabetes, osteoporosis, hypercholesterolemia, left total hip replacement
Current meds: Aspirin 81 mg a day, carvedilol 3.125 mg twice daily, lisinopril 2.5 mg daily on hold, rosuvastatin 5 mg daily, insulin, IV heparin
97/69, pulse 104, respiratory 16, afebrile, somewhat discouraged, complaining of nausea, does not appear to be in acute distress, head neck exam unremarkable, lungs are clear, relatively tachycardic with systolic murmur, JVD okay, extrasystoles,
abdomen benign, extremities without clubbing cyanosis or edema
Cardiac catheterization 07/2018: 30% ostial left main, 50 to 60% mid LAD and 50% beyond D1, moderate diffuse disease, OM1 with 50 to 60% proximal stenosis, RCA with 95% ulcerated mid vessel stenosis, 70% mid to distal stenosis, severe inferior
hypokinesis and inferoapical hypokinesis, EF 40%, 2.5 x 28 mm Xience stent to mid RCA
Echocardiogram 07/2018: Basal to mid inferior hypokinesis as well as inferoseptal and inferolateral hypokinesis, EF 45%, chordal YARI with mild to moderate mitral regurgitation, aortic sclerosis
Hemoglobin 10.5, white count 11.7 BUN and creatinine are 32 and 0.8, peak troponin is 6.3 trending down
Impression:
Non-ST segment elevation WI
Status post ORIF right hip 08/27/2024
Ischemic cardiomyopathy, with improved EF
Type 1 diabetes x 65 years
Hypertension
Hyperlipidemia
Blood loss anemia, status post 1 unit packed red cells
Right carotid bruit
Plan:
She presents with a non-ST segment elevation WI 3 to 4 days postop ORIF of right hip fracture from a mechanical fall. Her last catheterization was in 2019 at the time of PCI. She had moderate LAD disease at that time with moderate stenosis of an
OM1.
No evidence of overt heart failure at present. Peak troponin is 6. She does not have dramatic ST segment changes.
Currently she is on heparin and aspirin. Blood pressure is relatively low, on carvedilol. Will give an additional dose of carvedilol. Continue heparin.
Will check echo, best option is to proceed to cardiac catheterization lab. Patient initially said 'I have had a good life', but reminded that her quality of life was good following her initial PCI, and that likelihood of the good outcome is still
high.
Patient agreeable to proceed with cardiac catheterization.
Original Note:
Consultation
Consultation Request
Date/Time Consultation Performed: 08/31/24
Requesting Provider: Dr. Bianchi
Performing Provider: Esha Amador PA-C for Dr. JOSH Flores
Reason for Consultation: WI
Medical History
-
Chief Complaint: fall
History of Present Illness:
Patient is an 84-year-old female with past medical history of CAD status post inferior WI with RCA PCI 2018. At the time of that cath she was also noted to have 30% left main, 50 to 60% LAD disease, 50 to 60% of proximal OM. She had an ischemic
cardiomyopathy with EF 45% which subsequently normalized. She is a type I diabetic and states that her blood sugars are not well-controlled. She presented to [facility] after her leg gave out on her and she fell and was found to have a
right femur fracture status post cephalomedullary nail fixation on 08/27/2024. She received 1 unit of blood on 08/29/2024. Last evening she was noted to have chest discomfort which felt like a 'block of wood on her chest'. She reports since then she
has had feeling of fluttering or butterflies in her chest however no further pain on IV heparin. She does report some continued nausea. Troponin of 6.3 and trending down. Cardiology consulted for evaluation.
PMH:
CAD status post inferior WI with RCA PCI 2018
History of ischemic cardiomyopathy, recovered
Type I diabetic
Hypertension
Hyperlipidemia
Right carotid bruit
Past Medical History
Past Medical History: Other (in HPI)
Social History
Tobacco: Non-Smoker
Alcohol: None
Personal:
Living: With Family
Employment: Retired
Family History
Family History: Cancer
Allergies / Home Medications
Allergy/AdvReac Type Severity Reaction Status Date / Time
bacitracin Allergy Unknown Verified 08/13/20 15:12
[From Neosporin
([id number])]
neomycin Allergy Unknown Verified 08/13/20 15:12
[From Neosporin
([id number]-cdffp)]
polymyxin B Allergy Unknown Verified 08/13/20 15:12
[From Neosporin
(mld-osc-[id number])]
�Medication �Instructions �Recorded �Confirmed �Type
cholecalciferol (vitamin D3) 50 2,000 unit PO DAILY 08/05/18 08/26/24 History
mcg (2,000 unit) tablet
aspirin 81 mg chewable tablet 81 mg PO DAILY ##30 08/07/18 08/26/24 Rx
carvedilol 3.125 mg tablet 3.125 mg PO BID ##60 08/07/18 08/26/24 Rx
lisinopril 2.5 mg tablet 2.5 mg PO DAILY ##30 08/07/18 08/26/24 Rx
insulin aspar prt-insulin aspart 10 unit SC QPM 08/26/24 08/26/24 History
100 unit/mL (70-30) subcutaneous
soln (Novolog Mix 70-30 U-100
Insuln)
insulin aspar prt-insulin aspart 16 unit SC DAILY 08/26/24 08/26/24 History
100 unit/mL (70-30) subcutaneous
soln (Novolog Mix 70-30 U-100
Insuln)
rosuvastatin 5 mg tablet 5 mg PO QPM 08/26/24 08/26/24 History
blood sugar diagnostic (Contour ##200 08/28/24 Rx
Next Test Strips)
lancets 21 gauge (Color Lancets) ##200 08/28/24 Rx
Review of Systems
-
History Source: Patient
All other systems: Negative unless noted
Physical Exam
Vital Signs
Temp Pulse Resp BP Pulse Ox
99.0 F 99 16 122/65 95
08/31/24 03:10 08/31/24 03:10 08/31/24 03:10 08/31/24 03:10 08/31/24 03:10
Lab Results
Troponin I Cancelled 08/31/24 08:00
Physical Exam
General: No Apparent Distress and Comfortable
HEENT: Normocephalic, Anicteric and Moist Mucous Membranes
Respiratory: Clear and Non Labored Respirations
Cardiac: S1/S2 and Regular Rhythm (with ectopy)
GI: Soft, Non Tender, Non Distended and Normal Bowel Sounds
Musculoskeletal: No Clubbing, No Cyanosis and No Edema
Skin: Warm and Dry
Neuro: AO x 3
Impression / Plan
-
Primary Traffic Routing Engineer: Dr. Mcgrath
Assessment:
Presentation with fall
Right femur fracture status post cephalomedullary nail fixation on 08/27/2024
Postop anemia requiring transfusion
Chest pain
NSTEMI, peak trop 6.3
CAD status post inferior WI with RCA PCI 2018
History of ischemic cardiomyopathy, recovered
Type I diabetic
Hypertension
Hyperlipidemia
Right carotid bruit
Echo 10/12/2022: EF 61%, basal inferior hypokinesis, MAC, mild to moderate MR
Plan:
- Patient presented with fall and found to have right femur fracture. Status post cephalomedullary nail fixation on 08/27/2024. Her hemoglobin did drop to 8.6 postoperatively and was given 1 unit PRBCs on 08/29/2024. Then last evening she developed
chest discomfort and had troponin of 6.3, subsequently trending down resulting in cardiology consultation
- She is presently chest pain-free on IV heparin
- Echo to be completed this morning. She has history of ischemic cardiomyopathy in the setting of prior WI in 2019 which subsequently recovered. last echo from 09/2022 with EF 61%
- N.p.o. for cardiac catheterization today. reviewed procedure with patient this morning
- Continue aspirin
- Check lipids. only on crestor 5mg QPM as OP. will increase to 20mg QPM given WI and as diabetic
- Hemoglobin A1c 10.0%. Needs improved diabetic control, is type I
- Chest CT was negative for PE, however did show severe coronary artery calcifications.
- Continue Coreg, lisinopril
- Discussed with nursing
- Discussed with hospitalist
- called patient's son Lambert ([phone]) to update however no answer. left message, asked for him to call back.
Data Reviewed
-
EKG: Tracing Personally Visualized and interpreted
CT Scan: Report Reviewed by me
Medical Tests (Nuc Med, Echo etc): Report Reviewed by me
Labs: Labs Reviewed by me
Old Records: Reviewed
[2024-08-31 08:23] LABS: Glucose - Point of Care 292 mg/dl (70-99)
--- NOTE | 2024-08-31 08:24 | PN.DE.MGMTRT ---
Insulin Management
- -
08/31/2024: Diabetes Management Follow up
Patient admitted with R hip pain s/p mechanical fall. PMH: CAD, Osteoporosis, hx of L hip fx s/p fall, and T1DM since she was 18 years of age. She was taking 70/30 insulin 16 units in AM and 10 units in PM. Last A1C was 10.8% on 06/28/24. Cr 0.8,
eGFR >60.
discussed importance of taking insulin with patient. Explained that because she refused her dinner insulin her fasting glucose was over 250. She stated that if she is less than 200 she is low. She is unable to accept the fact that if glucose is
126 she is able to take her dinner insulin when eating a meal.
Pt is off the floor to the Song Plugger at time of my visit. POD 4 s/p nail repair R femur.
70/30 NovoLog increased yesterday to 20 units, pre lunch glucose 212, dinner glucose improved 95.
Patient refused dinner 70/30 HS glucose 114, FBG 274 V.
Will continue 70/30 NovoLog 20 units BID and low corrective with meals
08/27 she stated that she does not monitor her blood sugars at home. She has been offered a glucose monitor but has declined it stating that ' I am 84 years old, I don't really want to stress myself with poking my finger. 08/28 discussed the importance
of glucose control and the importance of healing and she agreed to new meter. Provided and instructed on use of Contour Next meter.
Discussed with nurse.
Will follow.
Diabetes History
- -
Type of Diabetes: 1
Pre-Admission Diabetes Regimen
Lab Results
Hemoglobin A1c 10.0 % (4.0-5.6) H 08/27/24 05:33
Insulin Pump Settings
IP Diabetes Regimen
08/30/24 08/30/24 08/30/24
11:28 16:43 21:56
POC Glucose 212 H 95 114 H
05/09/25
08:21
POC Glucose 292 H
Meal type: Dinner
Meal type: Lunch
Meal type: Breakfast
Amount consumed: 5%
Amount consumed: 40%
Amount consumed: 30%
Patient Education
[2024-08-31 08:48] LABS: Hematocrit 30.8 % (37.0-47.0); Hemoglobin 10.8 g/dL (12.0-16.0); Mean Corp Hgb Conc. 35.1 g/dL (33.0-37.0); Mean Corpuscular Hgb 32.2 pg (27.0-31.0); Mean Corpuscular Volume 91.9 fL (81.0-99.0); Platelet Count 306 10^3/uL (130-400); Red Blood Cell Count 3.35 10^6/uL (4.20-5.40); Red Cell Dist. Width 15.8 % (11.5-14.5); White Blood Cell Count 11.1 10^3/uL (4.8-10.8)
[2024-08-31 08:57] LABS: APTT 39.8 Sec (23.4-35.0)
[2024-08-31 09:09] LABS: Blood Urea Nitrogen 26 mg/dl (7-17); Calcium 7.9 mg/dl (8.4-10.2); Carbon Dioxide 18 mmol/L (22-30); Chloride 106 mmol/L (98-107); Estimated Creatinine Clearance 42 ml/min; Glucose 274 mg/dl (70-99); Potassium 4.9 mmol/L (3.5-5.1); Sodium 134 mmol/L (135-145); eGFR > 60.00
[2024-08-31 09:14] LABS: HDL Cholesterol 63 mg/dl; LDL Cholesterol, Calculated 31 mg/dl; Total Cholesterol 117 mg/dl (50-199); Triglyceride 116 mg/dl (10-149); Very Low Density Lipoprotein 23 mg/dl (0-30)
[2024-08-31] MEDS: NOVOLOG FLEXPEN-MODERATE RESISTANCE SC ×2 (09:15→17:14)
[2024-08-31] MEDS: NOVOLOG MIX 70/30 FLEXPEN 20 UNITS SC ×2 (09:16→18:31)
[2024-08-31] MEDS: LOW STRENGTH ASPIRIN PO (09:16)
[2024-08-31] MEDS: COLACE PO ×3 (09:16→19:30)
[2024-08-31] MEDS: COREG 3.125 MG PO (09:16)
[2024-08-31] MEDS: VITAMIN D3 (cholecalciferol) 50 MCG PO (09:16)
[2024-08-31] MEDS: COREG 6.25 MG PO (09:18)
[2024-08-31] MEDS: LOW STRENGTH ASPIRIN 81 MG PO ×2 (09:31→19:31)
--- NOTE | 2024-08-31 09:49 | W.PN.UPDATE ---
Update Note
Progress Note Update
Patient now with repeat EKG showing STEMI in V1-V3. prelim echo images with LAD distribution abnormality. lab manager activated with plan for urgent cath. remains with nausea however no CP. BP 97/69. d/w nursing. d/w hospitalist. d/w lab manager. CCT 32
min
--- NOTE | 2024-08-31 09:51 | W.PN.HOSP.TC ---
Today's Communication/Plan
-
STEMI Alert with stat echo, stat cath, IV heparin
IVU transfer
Assessment / Plan
Assessment / Plan
Assessment:
acute STEMI
- suspected LAD distribution
- stat Echo
- stat Cath now
- IV heparin - requires intensive monitoring
- Trop peaked 6.30
Mechanical Fall
R hip fracture, acute, traumatic
- Xray: intertrochanteric fracture of the right hip
- s/p right short cephalomedullary nail on 08/27
- continue pain control
- PT/OT; WBAT
- IV Heparin for DVT ppx
- follow orthopedic recs
symptomatic Acute blood loss (operative) anemia
- s/p 1 unit PRBC; Hb 10.8
- follow Hb
Orthostatic hypotension
- compression therapy
Type 1 diabetes, uncontrolled
- continue 70/30 dosing BID
- continue SSI moderate
- A1c: 10.0%
- ONLINE COMMUNITY MANAGER following
Hyperkalemia - resolved
Coronary Artery Disease s/p RCA stent 2018
- continue aspirin/BB/Statin
- NELSON held for hypotension
DVT ppx: IV Heparin
Code: Full
Total Critical Care Time 55 minutes. I was immediately available to the patient and staff. I personally examined, reviewed labs, diagnostic images/reports, interpretations, treatment plans, discussed patient care with other providers and family or
caregivers (if patient is unable to make decisions), entered orders as appropriate and documented the medical record.
Anticipated Discharge: > 48 hours
Subjective/Interval History
-
Date of Service: August 31, 2024
no further chest pain overnight, some nausea
trop down to 3.170 and repeat [address] with ST elevations now suggestive of STEMI
Objective Data
-
Labs:
Laboratory Results
08/31/24 08/31/24 08/31/24
01:48 08:15 15:00
WBC 11.1 H
Hgb 10.8 L
Hct 30.8 L
Plt Count 306
APTT 33.6 39.8 H Pending
Sodium 134 L
Potassium 4.9
Chloride 106
Carbon Dioxide 18 L
BUN 26 H
Creatinine 0.8
Glucose 274 H
Calcium 7.9 L
Vital Signs:
Vital Signs
Temp Pulse Resp BP Pulse Ox
98.2 F 104 16 97/69 99
08/31/24 07:10 08/31/24 07:10 08/31/24 07:10 08/31/24 07:10 08/31/24 07:10
I&O
08/30/24 08/31/24 09/01/24
06:59 06:59 06:59
Intake Total 1510 / 1510 980 / 980
Balance 1510 / 1510 980 / 980
Physical Exam
-
General: No Apparent Distress
HEENT: Normocephalic and Atraumatic
Respiratory: Negative Wheezes
Cardiac: Regular Rhythm and S1/S2
GI: Soft
Neuro: AO x 3
Psych: Calm
Data Reviewed
-
Total Time Spent with Patient (in minutes): 51
Labs: Labs Reviewed by me
--- NOTE | 2024-08-31 10:00 | PTCARENOTE ---
Pt taken to the Cardiac Outgoing Inspector. Verbal report given to Outgoing Inspector RN prior to transfer.
--- NOTE | 2024-08-31 11:04 | ITS.CL.CATH ---
Exhibitions And Collections Manager - Catheterization
Cardiac Catheterization
Procedure Report:
LEFT HEART CATHETERIZATION
Date of Procedure: August 31, 2024
Referring: Dr. Dhaval Flores
PROCEDURES:
1. Left heart catheterization with coronary and single-plane left ventriculography
INDICATION: This is an 84-year-old female with a past medical history notable for coronary artery disease and stenting of the mid to distal right coronary artery with a 2.5 x 28 mm Xience stent which was postdilated with a 2.75 mm noncompliant
balloon in July 2018. She is a poorly controlled diabetic and has a history of hypertension and hyperlipidemia. She was admitted to [facility] on 08/26/2024 after a fall at home while she was standing up from a chair. She was found to
have a right intertrochanteric femur fracture and was taken to the operating room on 08/27/2024 and underwent successful repair. She did well postoperatively but developed substernal chest tightness overnight on 08/30/2024 and was found to have
modestly elevated troponin at 6.3 ng/mL. She was anemic and symptoms improved with blood transfusion. She denies any recurrent chest pain. Her electrocardiogram this morning was notable for new anteroseptal ST segment elevation. She currently
denies any chest discomfort and her troponin is actually decreasing.
ACCESS: Right radial artery, 6 Malay sheath. Patient developed severe spasm and only 5 Malay catheters could be utilized to image the coronary vessels.
HEMODYNAMICS : (mmHg)
AO (s/d) : Patient became markedly hypotensive following sedation and 61/37. She received IV fluids and blood pressures improved to 95/52
LV (s/d) : 107/16
LVEDP : 31
CORONARY FINDINGS
DOMINANCE: Right
LEFT MAIN: Normal
LEFT ANTERIOR DESCENDING: The LAD is very heavily calcified over its course. The LAD arises from the left main. There is a 70% proximal stenosis before the first septal body specialist. There is diffuse calcific moderate atherosclerotic disease into
the mid LAD where 80% stenosis is noted between the 2nd and 3rd diagonal branches. The first diagonal branch is small and diffusely diseased in the proximal to mid vessel. The first diagonal branch arises very proximally from the LAD. The second
diagonal branch was previously noted to be a small caliber vessel that bifurcated in supplying several small tributary branches. The second diagonal branch is now subtotally occluded at its origin with faint antegrade filling and is felt to be the
culprit stenosis for the patient's recent symptoms.
CIRCUMFLEX: The circumflex is a small caliber nondominant vessel that supplies a single bifurcating obtuse marginal branch that has a 60% proximal stenosis.
RIGHT CORONARY ARTERY: The right coronary artery is a dominant vessel that is heavily calcified. There is a 60% stenosis in the mid right coronary artery and a stent is present in the distal right coronary artery with 80% in-stent restenosis in the
proximal portion of the stent. The PDA is heavily calcified with diffuse luminal irregularities. The posterolateral branch is a small caliber vessel with significant stenosis in the mid vessel
VENTRICULOGRAPHY: Left ventriculography is performed in an WALTON projection. The digital single-plane left ventricular ejection fraction is estimated at 40-45% with anterolateral hypokinesis
SEDATION: 28 minutes of procedural sedation was utilized. An independent medical radiation tech was present to assist with and help manage the patient's level of consciousness and physiologic status.
RADIATION SUMMARY: Fluoro Time (min): 4.3, Dose (mGy): 220, DAP (Gy.cm2) : 20.9
Closure Device: TR band
CONCLUSIONS
1. Subacute coronary syndrome. The electrocardiogram this morning was suggestive of an evolving anterior septal wall myocardial infarction, however, the patient was chest pain-free and the troponin was trending lower. The culprit vessel causing
patient's symptoms is likely the second diagonal branch is now noted to be occluded. There has been progressive coronary disease in the proximal LAD and in the mid LAD. However, the LAD is very heavily calcified and is a small caliber vessel.
There is a 80% segment of in-stent restenosis in the mid to distal RCA stent with 60% stenosis in the mid RCA proximal to the stented segment
2. Mild LV dysfunction with wall motion abnormality involving the anterolateral wall likely from occluded diagonal branch
RECOMMENDATIONS
1. Will continue to trend troponin levels
2. Medical management for occluded diagonal branch
3. Antianginal medicines as blood pressure tolerates
4. Could consider percutaneous revascularization of the right coronary artery if she develops refractory anginal symptoms. The LAD intervention would be challenging given heavy calcification noted throughout the vessel and would only consider once
maximized on medical therapy with onging symptom.
Copy to: Dr. Demond Mcgrath
--- NOTE | 2024-08-31 11:37 | W.PN.UPDATE ---
Update Note
Progress Note Update
Cardiac catheterization with suspected diagonal culprit vessel, however too small for intervention. She has significant multivessel coronary artery disease, suspected from long-term diabetes. Discussed antiplatelet regimen with orthopedics and
plan for 81 mg aspirin twice daily along with Plavix for 4 weeks, then will decrease aspirin dose to 81 mg daily. will give 600mg plavix load today, then place on 75mg daily as of 09/01.
[2024-08-31] MEDS: PLAVIX 600 MG PO (12:07)
[2024-08-31 12:16] LABS: Glucose - Point of Care 234 mg/dl (70-99)
[2024-08-31] MEDS: NOVOLOG FLEXPEN-MODERATE RESISTANCE 3 UNITS SC (12:48)
--- NOTE | 2024-08-31 13:29 | PTCARENOTE ---
BP SBP 70'S. Patient asymptomatic. Dr. Garcia at bedside. [address] Garcia ok to send to IVU with BP.
[2024-08-31] MEDS: NSS 250 IV (14:40)
[2024-08-31] MEDS: PROTONIX 40 MG PO (14:41)
[2024-08-31] MEDS: NSS 231 IV (14:42)
--- NOTE | 2024-08-31 15:21 | CM ---
Reviewed chart. Jean Fisher was transferred to IVU. Met with Mrs. Pena to review discharge plans. She states prior to admission she resides with her spouse in a two story home with four steps to enter. She states she has a first floor set-up. She
states prior to admission she was independent with ambulation and adls. She states she has a walker at home but currently not using it. She states she has a prescription plan. She states she is needing to go to some level of rehab. She states she
[facility] today but she was not medically stable. She is also willing to consider [facility] and [facility]. Will need to check on bed availability at [facility], [facility] and [facility] once discharge date in known. Medical work-up in progress. The discharge plan is to go to some level of rehab. when medically stable and bed available.
[2024-08-31 16:39] LABS: Glucose - Point of Care 91 mg/dl (70-99)
--- NOTE | 2024-08-31 16:39 | PTCARENOTE ---
Received patient from the mushroom laborer at 1400 after left heart cath via right radial artery. Patient was hypotensive in the recovery area and received IV NS as ordered, bolus and post cath fluids. Patient denies any pain or sob, monitoring VS. BP now
108/65, SR on the monitor. Oriented to the room and plan of care, call griffin in reach.
[2024-08-31 17:24] LABS: NT-proBNP 22100 pg/ml
[2024-08-31] MEDS: CRESTOR 5 MG PO (18:31)
[2024-08-31] MEDS: COREG PO (19:31)
--- NOTE | 2024-08-31 21:02 | PTCARENOTE ---
Pt rec'd at change of shift awake,alert in recliner chair with legs elevated. Sinus with pac's on telemetry. Assisted back to bed at 2029 after voiding on bsc. right radial site with DDI, good pulse
Right hip with DDI. call griffin within reach
[2024-08-31 22:06] LABS: Glucose - Point of Care 61 mg/dl (70-99)
[2024-08-31 22:23] LABS: Glucose - Point of Care 48 mg/dl (70-99)
[2024-08-31] MEDS: DEXTROSE 50% SYRINGE 12.5 GRAMS IV (22:25)
[2024-08-31 23:04] LABS: Glucose - Point of Care 192 mg/dl (70-99)
--- NOTE | 2024-08-31 23:35 | PTCARENOTE ---
Pt called nursing to bedside stating she thought her blood sugar was low. accu check at 2204 61.
4 oz of OJ given. repeat accu check at 2220 resulted at 48. Pt more somnolent and little diaphoretic therefore 12.5 g of Dextrose given IV and after 15 min accu check resulted at 192. Pt alert,feeling better.
[2024-09-01] VITALS (11 sets, daily range): BP systolic 92–117; BP diastolic 48–77; PULSE 99–100; O2SAT 99
[2024-09-01 00:54] LABS: Glucose - Point of Care 125 mg/dl (70-99)
[2024-09-01 02:56] LABS: Glucose - Point of Care 152 mg/dl (70-99)
[2024-09-01 03:15] LABS: Hematocrit 27.5 % (37.0-47.0); Hemoglobin 9.6 g/dL (12.0-16.0); Mean Corp Hgb Conc. 34.9 g/dL (33.0-37.0); Mean Corpuscular Hgb 32.4 pg (27.0-31.0); Mean Corpuscular Volume 92.9 fL (81.0-99.0); Mean Platelet Volume 9.8 fL (7.4-10.4); Platelet Count 316 10^3/uL (130-400); Red Blood Cell Count 2.96 10^6/uL (4.20-5.40); Red Cell Dist. Width 15.4 % (11.5-14.5); White Blood Cell Count 12.7 10^3/uL (4.8-10.8)
[2024-09-01 03:39] LABS: Blood Urea Nitrogen 28 mg/dl (7-17); Calcium 7.9 mg/dl (8.4-10.2); Carbon Dioxide 21 mmol/L (22-30); Chloride 107 mmol/L (98-107); Estimated Creatinine Clearance 42 ml/min; Glucose 146 mg/dl (70-99); Potassium 4.5 mmol/L (3.5-5.1); Sodium 136 mmol/L (135-145); eGFR > 60.00
--- NOTE | 2024-09-01 07:49 | W.PN.CARDCBS ---
Addendum entered and electronically signed by Dhaval Flores MD 09/01/24 10:52:
84-year-old woman with right hip fracture status post ORIF 08/27/2024, now with chest discomfort associated with troponin of 6.3. ECG with old inferior and possible anterior myocardial infarction, negative CT with pulmonary embolism protocol, repeat
ECG with ST segment elevation anteriorly, sent to [facility], medical management. See cath report below. Currently, she says she feels 'miserable'. Major issue seems to be low back pain. Also says she has trouble taking a deep breath. No chest
discomfort.
PMH/PSH: CAD, prior UT 2019, RCA PCI as above 2019, type 1 diabetes, osteoporosis, hypercholesterolemia, left total hip replacement
Medications: Carvedilol 3.125 twice daily, lisinopril 2.5 mg daily, Colace, insulin 70/30, aspirin 81 mg a day, clopidogrel 75 mg daily, pantoprazole, rosuvastatin, furosemide 20 mg IV x 1 today
109/53, pulse 101, respiratory 20, afebrile, weight is stable 51.4 kg, appears uncomfortable and is frustrated but no acute distress lungs are clear, JVD not elevated, systolic murmur base and apex, (chordal YARI on echo), abdomen benign, not much
edema
White count 12.7, hemoglobin 9.6, BUN and creatinine 28 and 0.8, peak troponin was 6.3, 2.55 presently, proBNP is 22,100
ECG this morning: Pending
Cardiac catheterization: Heavily calcified LAD, 70% proximal stenosis, 80% mid stenosis, small diffusely diseased first diagonal, subtotally occluded second diagonal, likely the culprit, circumflex with 60% proximal stenosis, 60% mid right, stent in
distal RCA with 80% in-stent restenosis, EF 40-45% with hyperdynamic base
Echo 08/31/2024: EF 40-45%, LAD distribution wall motion abnormality, chordal YRAI, peak and mean aortic valve gradients are 14 and 9, pulmonary artery systolic pressures 33, EF had been 61% in 2022
Assessment:
Right femur fracture status post cephalomedullary nail fixation on 08/27/2024
Acute heart failure with mildly reduced EF
NSTEMI, peak trop 6.3
CAD status post inferior UT with RCA PCI 2018
History of ischemic cardiomyopathy with improved EF
Type I diabetic
Hypertension
Hyperlipidemia
Right carotid bruit
Postop anemia requiring transfusion
Plan:
Difficult situation in that she has has what could be a dynamic LVOT gradient but evidence of heart failure and blood pressure that is relatively low and diffuse three-vessel disease with the culprit second diagonal stenosis. Fortunately, her
troponin was not markedly elevated. LV function however is reduced
She received furosemide x 1 this morning.
Will attempt to uptitrate carvedilol. Would continue to hold lisinopril at this time.
Options for PCI are limited.
From standpoint of recent femoral fracture she is relatively stable.
Original Note:
Today's Communication / Plan
-
Continue aspirin, Plavix
Follow blood pressures. Continue Coreg, lisinopril as able
Will attempt diuresis
PT/OT
Impression / Plan
-
Primary Diesel Engine Operator: Dr. Mcgrath
Assessment:
Presentation with fall
Right femur fracture status post cephalomedullary nail fixation on 08/27/2024
Postop anemia requiring transfusion
Chest pain
NSTEMI, peak trop 6.3
CAD status post inferior UT with RCA PCI 2018
History of ischemic cardiomyopathy, recovered
Type I diabetic
Hypertension
Hyperlipidemia
Right carotid bruit
Echo 10/12/2022: EF 61%, basal inferior hypokinesis, MAC, mild to moderate MR
ECHO 08/31/24: EF 40 to 45% with anterior, anteroseptal and apical hypokinesis, M NELSON, mild MR, peak/mean gradients across aortic valve of 14/9 mmHg with no AR, mild TR, PAP 33 mmHg
Plan:
- Patient presented with fall and found to have right femur fracture. Status post cephalomedullary nail fixation on 08/27/2024. Her hemoglobin did drop to 8.6 postoperatively and was given 1 unit PRBCs on 08/29/2024.
-08/30/24 she developed chest discomfort and ruled in for UT with peak trop 6.3. EKG 5/9AM with evidence of STEMI resulting in urgent cardiac cath showing new occlusion of 2nd diagonal branch. She was also noted to have progression in coronary
disease of proximal and mid LAD however heavily calcified and small caliber vessel as well as 80% in-stent restenosis of mid to distal RCA stent and 60% stenosis of mid RCA proximal to stented segment. Plan for medical management at this time. LAD
intervention could be considered if recurrent symptoms, however would be challenging due to significant calcification in vessel
- She remains pain-free overnight
- Continue aspirin, Plavix
- Crestor dose increased this admission
- Discussed with patient she needs improved diabetic control. Hemoglobin A1c 10%. Is type I
- Echo showed EF 40 to 45% with hypokinesis as above. Results discussed with patient 09/01
- Hypotension has limited up titration of guideline directed medical therapy for CAD/cardiomyopathy. Continue low-dose Coreg, lisinopril with hold parameters in place
- She was given fluid yesterday due to low blood pressures. proBNP is 21,000. Suspect will need diuresis as blood pressure tolerates. Does not appear uncomfortable, O2 sats stable on room air
- PT OT
Progress Note - Diesel Engine Operator
Subjective
Date of Service: September 01, 2024
Denies chest pain or shortness of breath. Reports feeling tired
Objective
Labs:
09/01/24 02:54
09/01/24 02:54
Labs
Hgb 9.6 g/dL (12.0-16.0) L 09/01/24 02:54
Hct 27.5 % (37.0-47.0) L 09/01/24 02:54
Plt Count 316 10^3/uL (130-400) 09/01/24 02:54
APTT Cancelled 08/31/24 15:00
Sodium 136 mmol/L (135-145) 09/01/24 02:54
Potassium 4.5 mmol/L (3.5-5.1) 09/01/24 02:54
BUN 28 mg/dl (7-17) H 09/01/24 02:54
Creatinine 0.8 mg/dL (0.6-1.0) 09/01/24 02:54
Glucose 146 mg/dl (70-99) H 09/01/24 02:54
Troponins
08/30/24 08/30/24 08/31/24
16:42 20:31 01:48
Troponin I 6.300 H* 4.250 H* D 3.170 H* D
08/31/24 08/31/24 08/31/24
08:00 11:45 19:00
Troponin I Cancelled 2.960 H* Cancelled
09/01/24
02:54
Troponin I 2.550 H*
Vital Signs and I&O:
Vital Signs
Temp Pulse Resp BP Pulse Ox
98.2 F 95 20 99/71 97
09/01/24 03:02 09/01/24 06:00 09/01/24 03:02 09/01/24 02:46 09/01/24 03:02
Vital Signs
Temp Pulse Resp BP Pulse Ox
98.2 F 95 20 99/71 97
09/01/24 03:02 09/01/24 06:00 09/01/24 03:02 09/01/24 02:46 09/01/24 03:02
Intake & Output
08/29/24 08/30/24 08/31/24 09/01/24
07:59 07:59 07:59 07:59
Intake Total 2620 / 2620 1510 / 1510 980 / 980 1120 / 1120
Output Total 150 / 150
Balance 2620 / 2620 1510 / 1510 980 / 980 970 / 970
Physical Exam
Physical Exam
GEN: No distress, awake, alert, oriented x3
HEENT: supple, anicteric, mmm, EOMI
LUNGS: CTA bilaterally, no wheezes/rales
CV: Reg, S1/S2, 1/6 murmur
ABD: soft, BS+, NT/ND
EXT: No cyanosis, clubbing, edema
NEURO: Gross non-focal
SKIN: Warm, pink, dry. No rash
[2024-09-01 08:04] LABS: Glucose - Point of Care 128 mg/dl (70-99)
[2024-09-01] MEDS: NOVOLOG FLEXPEN-MODERATE RESISTANCE SC (08:18)
[2024-09-01] MEDS: COLACE PO ×2 (08:20→20:26)
[2024-09-01] MEDS: COREG PO (08:22)
[2024-09-01] MEDS: LOW STRENGTH ASPIRIN 81 MG PO ×2 (08:23→20:26)
[2024-09-01] MEDS: PLAVIX 75 MG PO (08:23)
[2024-09-01] MEDS: VITAMIN D3 (cholecalciferol) 50 MCG PO (08:23)
[2024-09-01] MEDS: PROTONIX 40 MG PO (08:23)
[2024-09-01] MEDS: NOVOLOG MIX 70/30 FLEXPEN SC (08:25)
[2024-09-01] MEDS: COREG 3.125 MG PO (11:20)
[2024-09-01] MEDS: LASIX 20 MG IV (12:32)
[2024-09-01 12:46] LABS: Glucose - Point of Care 188 mg/dl (70-99)
[2024-09-01] MEDS: NOVOLOG FLEXPEN-MODERATE RESISTANCE 1 UNITS SC (13:37)
--- NOTE | 2024-09-01 15:41 | W.PN.HOSP.TC ---
Today's Communication/Plan
-
continue cardiac med titration
dc planning to SNF
Assessment / Plan
Assessment / Plan
Assessment:
acute NSTEMI
- Trop peaked 6.30
- s/p C 08/31: cardiac cath showing new occlusion of 2nd diagonal branch. She was also noted to have progression in coronary disease of proximal and mid LAD however heavily calcified and small caliber vessel as well as 80% in-stent restenosis of
mid to distal RCA stent and 60% stenosis of mid RCA proximal to stented segment
- Echo: EF 40 to 45% with anterior, anteroseptal and apical hypokinesis, M NELSON, mild MR, peak/mean gradients across aortic valve of 14/9 mmHg with no AR, mild TR, PAP 33 mmHg
- continue ASA/Plavix/Statin with medical management strategy
- GDMT: BB/NELSON
- BNP 64266 - IV Lasix per Cards; requires intensive monitoring of I/Os, weights, lytes
Mechanical Fall
R hip fracture, acute, traumatic
- Xray: intertrochanteric fracture of the right hip
- s/p right short cephalomedullary nail on 08/27
- continue pain control
- PT/OT; WBAT
- Lovenox for DVT ppx
- follow orthopedic recs
symptomatic Acute blood loss (operative) anemia
- s/p 1 unit PRBC; Hb 9.6
- follow Hb
Orthostatic hypotension
- compression therapy
Type 1 diabetes, uncontrolled
- continue 70/30 dosing BID
- continue SSI moderate
- A1c: 10.0%
- DATA SOFTWARE ENGINEER following
Hyperkalemia - resolved
Coronary Artery Disease s/p RCA stent 2018
- continue aspirin/NELSON/BB/Statin
DVT ppx: Lovenox
Code: Full
Anticipated Discharge: > 48 hours
Subjective/Interval History
-
Date of Service: September 01, 2024
Denies chest pain or shortness of breath. Reports feeling tired
Objective Data
-
Vital Signs:
Vital Signs
Temp Pulse Resp BP Pulse Ox
98.8 F 94 18 100/60 97
09/01/24 11:35 09/01/24 12:32 09/01/24 11:35 09/01/24 12:32 09/01/24 03:02
I&O
08/31/24 09/01/24 09/02/24
06:59 06:59 06:59
Intake Total 980 / 980 1120 / 1120
Output Total 150 / 150
Balance 980 / 980 970 / 970
Physical Exam
-
General: No Apparent Distress
HEENT: Normocephalic and Atraumatic
Respiratory: Negative Wheezes
Cardiac: Regular Rhythm and S1/S2
GI: Soft and Nontender
Musculoskeletal: No Edema
Neuro: AO x 3
Psych: Calm
Data Reviewed
-
Total Time Spent with Patient (in minutes): 51
Labs: Labs Reviewed by me
--- NOTE | 2024-09-01 16:20 | PTCARENOTE ---
Pt oob to bedside commode and then sitting in the recliner. Pt comfortable and denies any pain. VSS. Pt seen by PT. PT noted and verbalized to RN about pt's statement 'to pass away'. Pt with and silk spreader. Pt states that she feels
'much better', since the visit. Pt smiling and laughing since the visit. Will monitor.
[2024-09-01] MEDS: LOVENOX 40 MG SC (17:50)
[2024-09-01] MEDS: CRESTOR 20 MG PO (18:01)
[2024-09-01] MEDS: NOVOLOG MIX 70/30 FLEXPEN 20 UNITS SC (18:03)
[2024-09-01] MEDS: NOVOLOG FLEXPEN-MODERATE RESISTANCE 5 UNITS SC (18:04)
[2024-09-01 18:10] LABS: Glucose - Point of Care 294 mg/dl (70-99)
[2024-09-01 21:24] LABS: Glucose - Point of Care 141 mg/dl (70-99)
[2024-09-02] VITALS (11 sets, daily range): BP systolic 85–110; BP diastolic 50–66; PULSE 96; O2SAT 100
[2024-09-02 00:12] LABS: Glucose - Point of Care 72 mg/dl (70-99)
[2024-09-02 00:29] LABS: Glucose - Point of Care 93 mg/dl (70-99)
--- NOTE | 2024-09-02 00:55 | PTCARENOTE ---
Pt. complained of feeling diaphoretic/low blood blood sugar at 0010. Accucheck 72. 4 oz Juice provided and blood sugar re-checked 15 minutes later with results of 93. Pt. states she feels better, asked for milk and more crackers. Snack given,
will recheck blood sugar again at 0230. No complaints of chest pain/discomfort; pt. also states this is her first day since surgery that her right hip doesn't hurt. NSR on the monitor.
[2024-09-02 02:46] LABS: Glucose - Point of Care 146 mg/dl (70-99)
[2024-09-02 03:46] LABS: Hematocrit 25.6 % (37.0-47.0); Hemoglobin 8.9 g/dL (12.0-16.0); Mean Corp Hgb Conc. 34.8 g/dL (33.0-37.0); Mean Corpuscular Hgb 32.1 pg (27.0-31.0); Mean Corpuscular Volume 92.4 fL (81.0-99.0); Platelet Count 327 10^3/uL (130-400); Red Blood Cell Count 2.77 10^6/uL (4.20-5.40); Red Cell Dist. Width 15.2 % (11.5-14.5); White Blood Cell Count 10.3 10^3/uL (4.8-10.8)
[2024-09-02 04:07] LABS: Blood Urea Nitrogen 27 mg/dl (7-17); Carbon Dioxide 23 mmol/L (22-30); Chloride 107 mmol/L (98-107); Estimated Creatinine Clearance 37 ml/min; Glucose 126 mg/dl (70-99); Potassium 4.2 mmol/L (3.5-5.1); Sodium 134 mmol/L (135-145); eGFR > 60.00
[2024-09-02 04:51] LABS: Glucose - Point of Care 140 mg/dl (70-99)
[2024-09-02 08:01] LABS: Glucose - Point of Care 212 mg/dl (70-99)
[2024-09-02] MEDS: COLACE PO ×2 (08:31→19:49)
[2024-09-02] MEDS: LOW STRENGTH ASPIRIN 81 MG PO (08:33)
[2024-09-02] MEDS: PLAVIX 75 MG PO (08:33)
[2024-09-02] MEDS: PROTONIX 40 MG PO (08:33)
[2024-09-02] MEDS: VITAMIN D3 (cholecalciferol) 50 MCG PO (08:33)
[2024-09-02] MEDS: NOVOLOG FLEXPEN-MODERATE RESISTANCE 3 UNITS SC (08:34)
--- NOTE | 2024-09-02 09:52 | W.PN.CARDCBS ---
Addendum entered and electronically signed by Dhaval Flores MD 09/02/24 15:45:
I called and spoke with son
Original Note:
Today's Communication / Plan
-
Change hold parameters for carvedilol
No diuretic at present
Decrease aspirin to once daily
Discharge planning
[facility] GDMT as blood pressure and heart rate permit
Impression / Plan
-
Primary Battalion Chief: Dr. Mcgrath
Assessment:
Presentation with fall
Right femur fracture status post cephalomedullary nail fixation on 08/27/2024
Postop anemia requiring transfusion
Chest pain
NSTEMI, peak trop 6.3
CAD status post inferior NH with RCA PCI 2018
History of ischemic cardiomyopathy, recovered
Type I diabetic
Hypertension
Hyperlipidemia
Right carotid bruit
Echo 10/12/2022: EF 61%, basal inferior hypokinesis, MAC, mild to moderate MR
ECHO 08/31/24: EF 40 to 45% with anterior, anteroseptal and apical hypokinesis, M NELSON, mild MR, peak/mean gradients across aortic valve of 14/9 mmHg with no AR, mild TR, PAP 33 mmHg
Plan:
Despite everything she has been through, I think she looks somewhat better today. No chest or back pain and no shortness of breath despite her recent ST segment elevation NH related to diagonal occlusion with severe underlying CAD. Will continue
medical therapy. Not clear if she is a reasonable candidate for PCI or CABG
She received Lasix yesterday for a proBNP of approximately 21,000. At present, there is no evidence of heart failure despite her proBNP. Will not give additional diuretic at this time. Her creatinine is acceptable.
She is not a candidate for an SGLT2 antagonist as she is a type I diabetic.
We could consider reinitiation of lisinopril if blood pressure improves. Consider spironolactone.
She is not having chest discomfort. She is on aspirin 81 mg twice daily and clopidogrel 75 mg daily.
Her hemoglobin is drifting downwards, we will decrease aspirin to once daily, and if needed would treat with clopidogrel alone if hemoglobin continues to drop.
She has not been getting carvedilol due to hold parameters. Heart rate is around 100. I will rewrite her hold parameters and we will start with 3.125 mg of carvedilol twice daily and uptitrate as possible.
Okay to begin discharge planning.
As outpatient, we can determine best strategy for management of her severe CAD. Continued medical treatment may be the best choice.
Progress Note - Battalion Chief
Subjective
Date of Service: September 02, 2024:
84-year-old woman with right hip fracture status post ORIF 08/27/2024, now with chest discomfort associated with troponin of 6.3. ECG with old inferior and possible anterior myocardial infarction, negative CT with pulmonary embolism protocol, repeat
ECG with ST segment elevation anteriorly, sent to Category Development Analyst, medical management. See cath report below. She feels better now. Not having much back pain, not short of breath, hip is slowly improving.
PMH/PSH: CAD, prior NH 2019, RCA PCI as above 2019, type 1 diabetes, osteoporosis, hypercholesterolemia, left total hip replacement current medications: Lisinopril 2.5 mg daily on hold, Colace, insulin 70/30, aspirin 81 mg twice daily, clopidogrel
75 mg a day, pantoprazole 40 mg a day, rosuvastatin 20 mg at bedtime, carvedilol 6.25 twice daily, enoxaparin
108/55, pulse 101, resp rate 18 afebrile, sats 99%, weight has not recently been checked., Intake and output roughly even, somewhat tachycardic, lungs are clear, head neck exam is unremarkable, abdomen is benign, extremities are without clubbing
cyanosis or edema
EKG sinus rhythm, 95 bpm, anterior NH, low voltage, inferior NH
Hemoglobin 8.9, platelets are 327, BUN/creatinine 27 and 0.9, potassium 4.2, hemoglobin had been 9.6, 10.8
Telemetry: Sinus tach
Objective
Labs:
09/02/24 02:52
05/11/25 02:52
Labs
Hgb 8.9 g/dL (12.0-16.0) L 09/02/24 02:52
Hct 25.6 % (37.0-47.0) L 09/02/24 02:52
Plt Count 327 10^3/uL (130-400) 09/02/24 02:52
APTT Cancelled 08/31/24 15:00
Sodium 134 mmol/L (135-145) L 09/02/24 02:52
Potassium 4.2 mmol/L (3.5-5.1) 09/02/24 02:52
BUN 27 mg/dl (7-17) H 09/02/24 02:52
Creatinine 0.9 mg/dL (0.6-1.0) 09/02/24 02:52
Glucose 126 mg/dl (70-99) H 09/02/24 02:52
Troponins
08/30/24 08/30/24 08/31/24
16:42 20:31 01:48
Troponin I 6.300 H* 4.250 H* D 3.170 H* D
08/31/24 08/31/24 08/31/24
08:00 11:45 19:00
Troponin I Cancelled 2.960 H* Cancelled
09/01/24
02:54
Troponin I 2.550 H*
Vital Signs and I&O:
Vital Signs
Temp Pulse Resp BP Pulse Ox
36.8 C 101 18 108/57 99
09/02/24 02:46 09/02/24 08:32 09/02/24 02:46 09/02/24 08:32 09/02/24 02:46
Vital Signs
Temp Pulse Resp BP Pulse Ox
36.8 C 101 18 108/57 99
09/02/24 02:46 09/02/24 08:32 09/02/24 02:46 09/02/24 08:32 09/02/24 02:46
Intake & Output
08/31/24 09/01/24 09/02/24 09/03/24
07:59 07:59 07:59 07:59
Intake Total 980 / 980 1120 / 1120 840 / 840
Output Total 150 / 150 700 / 700
Balance 980 / 980 970 / 970 140 / 140
Physical Exam
Physical Exam
See above
[2024-09-02] MEDS: NOVOLOG MIX 70/30 FLEXPEN SC (11:11)
[2024-09-02] MEDS: COREG 3.125 MG PO ×2 (11:11→19:50)
[2024-09-02 12:39] LABS: Glucose - Point of Care 257 mg/dl (70-99)
[2024-09-02] MEDS: NOVOLOG FLEXPEN-MODERATE RESISTANCE 5 UNITS SC (12:48)
--- NOTE | 2024-09-02 13:38 | W.PN.HOSP.TC ---
Today's Communication/Plan
-
continue current plan of care
dc planning to SNF
Assessment / Plan
Assessment / Plan
Assessment:
acute NSTEMI
- Trop peaked 6.30
- s/p [facility] 08/31: cardiac cath showing new occlusion of 2nd diagonal branch. She was also noted to have progression in coronary disease of proximal and mid LAD however heavily calcified and small caliber vessel as well as 80% in-stent restenosis of
mid to distal RCA stent and 60% stenosis of mid RCA proximal to stented segment
- Echo: EF 40 to 45% with anterior, anteroseptal and apical hypokinesis, M NELSON, mild MR, peak/mean gradients across aortic valve of 14/9 mmHg with no AR, mild TR, PAP 33 mmHg
- continue ASA/Plavix/Statin with medical management strategy
- GDMT: BB/NELSON with parameters
- BNP 31394 - s/p short IV Lasix course. continue to monitor I/Os, weights, lytes
Mechanical Fall
R hip fracture, acute, traumatic
- Xray: intertrochanteric fracture of the right hip
- s/p right short cephalomedullary nail on 08/27
- continue pain control
- PT/OT; WBAT. SNF recommended
- Lovenox for DVT ppx
- follow orthopedic recs
symptomatic Acute blood loss (operative) anemia
- s/p 1 unit PRBC; Hb 9.6
- follow Hb
Orthostatic hypotension
- compression therapy
Type 1 diabetes, uncontrolled
- continue 70/30 dosing BID - decreased to 12 units BID due to nighttime hypoglycemia
- continue SSI moderate
- A1c: 10.0%
- TRANSIT MIXER DRIVER following
Hyperkalemia - resolved
Coronary Artery Disease s/p RCA stent 2018
- continue aspirin/NELSON/BB/Statin
DVT ppx: Lovenox
Code: Full
Anticipated Discharge: > 48 hours
Subjective/Interval History
-
Date of Service: September 02, 2024
overall improving
hypotension during therapy sessions and meds were adjusted
Objective Data
-
Labs:
Laboratory Results
09/02/24
02:52
WBC 10.3
Hgb 8.9 L
Hct 25.6 L
Plt Count 327
Sodium 134 L
Potassium 4.2
Chloride 107
Carbon Dioxide 23
BUN 27 H
Creatinine 0.9
Glucose 126 H
Calcium 8.0 L
Vital Signs:
Vital Signs
Temp Pulse Resp BP Pulse Ox
98.8 F 95 20 110/66 98
09/02/24 11:25 09/02/24 11:25 09/02/24 11:25 09/02/24 11:25 09/02/24 11:25
I&O
09/01/24 09/02/24 09/03/24
06:59 06:59 06:59
Intake Total 1120 / 1120 840 / 840
Output Total 150 / 150 700 / 700
Balance 970 / 970 140 / 140
Physical Exam
-
General: No Apparent Distress
HEENT: Normocephalic
Respiratory: Negative Wheezes
Cardiac: Regular Rhythm
GI: Soft
Neuro: AO x 3
Psych: Calm
Data Reviewed
-
Total Time Spent with Patient (in minutes): 41
Labs: Labs Reviewed by me
--- NOTE | 2024-09-02 13:57 | PTCARENOTE ---
Discussed post cath precautions of right radial site and post hip recovery. Pt motivated to continue post hip therapy w/ right radial precautions. Will monitor.
[2024-09-02 17:01] LABS: Glucose - Point of Care 338 mg/dl (70-99)
[2024-09-02] MEDS: NOVOLOG FLEXPEN-MODERATE RESISTANCE 7 UNITS SC (17:09)
[2024-09-02] MEDS: NOVOLOG MIX 70/30 FLEXPEN 12 UNITS SC (17:11)
[2024-09-02] MEDS: CRESTOR 20 MG PO (17:12)
[2024-09-02] MEDS: LOVENOX 40 MG SC (17:18)
[2024-09-02 22:26] LABS: Glucose - Point of Care 182 mg/dl (70-99)
--- NOTE | 2024-09-02 22:47 | PTCARENOTE ---
Pt rec'd at shift change oob in recliner chair. assisted to bathroom with walker for pm care. Sinus on telemetry. HS BS 182
[2024-09-03] VITALS (7 sets, daily range): BP systolic 95–115; BP diastolic 52–76; PULSE 93–97; O2SAT 99–100; BMI 20.3
[2024-09-03 03:09] LABS: Hematocrit 27.3 % (37.0-47.0); Hemoglobin 9.4 g/dL (12.0-16.0); Mean Corp Hgb Conc. 34.4 g/dL (33.0-37.0); Mean Corpuscular Hgb 32.1 pg (27.0-31.0); Mean Corpuscular Volume 93.2 fL (81.0-99.0); Mean Platelet Volume 9.8 fL (7.4-10.4); Platelet Count 375 10^3/uL (130-400); Red Blood Cell Count 2.93 10^6/uL (4.20-5.40); Red Cell Dist. Width 15.7 % (11.5-14.5); White Blood Cell Count 11.1 10^3/uL (4.8-10.8)
[2024-09-03 03:27] LABS: Blood Urea Nitrogen 23 mg/dl (7-17); Calcium 8.4 mg/dl (8.4-10.2); Carbon Dioxide 20 mmol/L (22-30); Chloride 107 mmol/L (98-107); Estimated Creatinine Clearance 37 ml/min; Glucose 184 mg/dl (70-99); Potassium 4.3 mmol/L (3.5-5.1); Sodium 135 mmol/L (135-145); eGFR > 60.00
--- NOTE | 2024-09-03 07:37 | W.PN.HOSP.TC ---
Today's Communication/Plan
-
dispo planning for rehab
Assessment / Plan
Assessment / Plan
Ms. Yael Pena is a 84 yo woman with hx CAD, DM I, osteoporosis presents to the ER with right hip pain s/p fall found to have a right hip fracture post ORIF 08/27/24 with post-op course complicated by NSTEMI
acute NSTEMI
- Trop peaked 6.30
- s/p [facility] 08/31: cardiac cath showing new occlusion of 2nd diagonal branch. She was also noted to have progression in coronary disease of proximal and mid LAD however heavily calcified and small caliber vessel as well as 80% in-stent restenosis of
mid to distal RCA stent and 60% stenosis of mid RCA proximal to stented segment
- Echo: EF 40 to 45% with anterior, anteroseptal and apical hypokinesis, M NELSON, mild MR, peak/mean gradients across aortic valve of 14/9 mmHg with no AR, mild TR, PAP 33 mmHg
- continue ASA/Plavix/Statin with medical management strategy
- GDMT: BB/NELSON with parameters
- BNP 87039 - s/p short IV Lasix course. continue to monitor I/Os, weights, lytes
Mechanical Fall
R hip fracture, acute, traumatic
- Xray: intertrochanteric fracture of the right hip
- s/p right short cephalomedullary nail on 08/27
- continue pain control
- PT/OT; WBAT. SNF recommended
- Lovenox for DVT ppx
- follow orthopedic recs
symptomatic Acute blood loss (operative) anemia
- s/p 1 unit PRBC; Hb 9.6
- follow Hb
Orthostatic hypotension
- compression therapy
Type 1 diabetes, uncontrolled
- continue 70/30 dosing BID - decreased to 12 units BID due to nighttime hypoglycemia
- continue SSI moderate
- A1c: 10.0%
- TAB MACHINE OPERATOR following
Hyperkalemia - resolved
Coronary Artery Disease s/p RCA stent 2019
- continue aspirin/NELSON/BB/Statin
DVT ppx: Lovenox
Code: Full
Anticipated Discharge: Within 24 hours
Subjective/Interval History
-
Date of Service: September 03, 2024
feeling well
no chest pain
Objective Data
-
Labs:
Laboratory Results
09/03/24
02:30
WBC 11.1 H
Hgb 9.4 L
Hct 27.3 L
Plt Count 375
Sodium 135
Potassium 4.3
Chloride 107
Carbon Dioxide 20 L
BUN 23 H
Creatinine 0.9
Glucose 184 H
Calcium 8.4
Vital Signs:
Vital Signs
Temp Pulse Resp BP Pulse Ox
98.1 F 98 20 115/52 97
09/03/24 02:25 09/03/24 02:25 09/03/24 02:25 09/03/24 02:25 09/03/24 02:25
I&O
09/02/24 09/03/24 09/04/24
06:59 06:59 06:59
Intake Total 840 / 840 120 / 120
Output Total 700 / 700
Balance 140 / 140 120 / 120
Review of Systems
-
History Source: Patient
All other systems: Reviewed and negative
Physical Exam
-
General: No Apparent Distress
HEENT: Normocephalic
Respiratory: Negative Wheezes
Cardiac: Regular Rhythm
GI: Soft
Neuro: AO x 3
Psych: Calm
Data Reviewed
-
Diagnostic Radiology: Report Reviewed by me
Labs: Labs Reviewed by me
[2024-09-03 07:59] LABS: Glucose - Point of Care 278 mg/dl (70-99)
--- NOTE | 2024-09-03 08:16 | PN.DE.MGMTRT ---
Insulin Management
- -
09/03/2024: Diabetes Management Follow up
Patient admitted with R hip pain s/p mechanical fall. PMH: CAD, Osteoporosis, hx of L hip fx s/p fall, and T1DM since she was 18 years of age. She was taking 70/30 insulin 16 units in AM and 10 units in PM. Last A1C was 10.8% on 06/28/24. Cr 0.8,
eGFR >60.
discussed importance of taking insulin with patient. Explained that because she refused her dinner insulin her fasting glucose was over 250. She stated that if she is less than 200 she is low. She is unable to accept the fact that if glucose is
126 she is able to take her dinner insulin when eating a meal.
Pt awake, alert, oriented, sitting up in chair, offers no complaints, able to discuss diabetes care plan.
POD #7 s/p nail repair R femur. 70/30 NovoLog was adjusted yesterday to 12 units. Pt refused her AM insulin dose yesterday. Glucose trended up to 338
Received her PM reduced dose, HS glucose was 187, FBG 278 POC.
Will increase 70/30 NovoLog to 14 units BID and low corrective with meals
Discussed current A1C and emphasized importance of optimal glucose control to maximize healing and to reduce risk of diabetes related complications.
Pt verbalized understanding and was agreeable to comply with the insulin regimen, at the very least to take a reduced dose than to refuse it all together.
Will cont to monitor and make further insulin adjustments if necessary. Discussed with nurse and asked her to TT so insulin dose can be adjusted than for pt to refuse ordered dose of insulin and not receive any insulin at all.
08/27 she stated that she does not monitor her blood sugars at home. She has been offered a glucose monitor but has declined it stating that ' I am 84 years old, I don't really want to stress myself with poking my finger. 08/28 discussed the importance
of glucose control and the importance of healing and she agreed to new meter. Provided and instructed on use of Contour Next meter.
Diabetes History
- -
Type of Diabetes: 1
Pre-Admission Diabetes Regimen
09/03/24
02:30
Creatinine 0.9
Lab Results
Hemoglobin A1c 10.0 % (4.0-5.6) H 08/27/24 05:33
Insulin Pump Settings
IP Diabetes Regimen
09/02/24 09/02/24 09/02/24
12:37 16:59 22:24
Glucose
POC Glucose 257 H 338 H 182 H
09/03/24 09/03/24
02:30 07:58
Glucose 184 H
POC Glucose 278 H
Meal type: Dinner
Amount consumed: 65%
Patient Education
[2024-09-03] MEDS: NOVOLOG FLEXPEN-MODERATE RESISTANCE 5 UNITS SC (09:27)
[2024-09-03] MEDS: NOVOLOG MIX 70/30 FLEXPEN 12 UNITS SC (09:28)
[2024-09-03] MEDS: COREG 3.125 MG PO (09:28)
[2024-09-03] MEDS: COLACE PO (09:28)
[2024-09-03] MEDS: LOW STRENGTH ASPIRIN 81 MG PO (09:28)
[2024-09-03] MEDS: PLAVIX 75 MG PO (09:29)
[2024-09-03] MEDS: PROTONIX 40 MG PO (09:29)
[2024-09-03] MEDS: FLUSH (NSS) 2 FLUSH IV (09:29)
[2024-09-03] MEDS: VITAMIN D3 (cholecalciferol) 50 MCG PO (09:29)
--- NOTE | 2024-09-03 10:23 | PTCARENOTE ---
Received patient this morning sitting oob in the chair, assisted to the bathroom with rolling walker. Right hip dressings are dry and intact. Patient inquiring about discharge planning, her preference would be to go to [place]. Sitting oob in the chair
with her call griffin in reach.
--- NOTE | 2024-09-03 12:41 | W.DS.TRANS ---
DC Summary - Hoop Cutter
-
Discharge Instructions:
Discharge Diagnosis/Procedures Mechanical Fall with R hip fracture s/p cephalo
-medullary nail on 08/27, NSTEMI Cardiac cath
Diet Low Cholesterol,Diabetic, Carb Controlled
Activity As tolerated
Bathing Restrictions None
Other Services OT,PT
Instructions:
Stand-Alone Forms: DC Instructions- Cath/EP Lab
Changes to Home Medications: Yes
Discharge Medications:
DC Medications w/original date entered in [employer]
cholecalciferol (vitamin D3) 50 mcg (2,000 unit) tablet 2,000 unit PO DAILY 08/05/18
aspirin 81 mg chewable tablet 81 mg PO DAILY ##30 08/07/18
blood sugar diagnostic (Contour Next Test Strips) ##200 08/28/24
lancets 21 gauge (Color Lancets) ##200 08/28/24
carvedilol 3.125 mg tablet 3.125 mg PO BID #60 tabs 09/03/24
clopidogrel 75 mg tablet 75 mg PO DAILY #30 tabs 09/03/24
docusate sodium 100 mg capsule 100 mg PO BID #60 caps 09/03/24
insulin aspar prot-insulin aspart 100 unit/mL (70-30) subcutaneous pen 12 unit (0.12 mL) SC BID@0800,1700 #15 mL 09/03/24
oxycodone 10 mg tablet 5 mg (1/2 x 10 mg) PO Q4HPRN PRN severe pain #30 tabs 09/03/24
pantoprazole 40 mg tablet,delayed release 40 mg PO DAILY #30 tabs 09/03/24
rosuvastatin 5 mg tablet 20 mg (4 x 5 mg) PO QPM #30 tabs 09/03/24
Home Medication Changes
You are started on Plavix 75mg daily to take in addition to aspirin 81mg daily.
You are started on Protonix 40mg daily for protection of your stomach.
Stop Lisinopril, this may be resumed as outpatient depending on your blood pressure.
Your Coreg dose is decreased to 3.125mg twice a day, this may be increased again as outpatient.
Your insulin is changed from 70-30 16 units in morning and 10 units in evening to 12 units twice a day. This may be further adjusted at rehab.
Rosuvastatin is increased from 5mg to 20mg.
Pending Results: No
--- NOTE | 2024-09-03 12:44 | W.DS.TRANS ---
DC Summary - Admissions Evaluator
-
Discharge Instructions:
Discharge Diagnosis/Procedures Mechanical Fall with R hip fracture s/p cephalo
-medullary nail on 08/27, NSTEMI Cardiac cath
Diet Low Cholesterol,Diabetic, Carb Controlled
Activity As tolerated
Bathing Restrictions None
Other Services OT,PT
Instructions:
Stand-Alone Forms: DC Instructions- Cath/EP Lab
Changes to Home Medications: Yes
Discharge Medications:
DC Medications w/original date entered in [employer]
cholecalciferol (vitamin D3) 50 mcg (2,000 unit) tablet 2,000 unit PO DAILY 08/05/18
aspirin 81 mg chewable tablet 81 mg PO DAILY ##30 08/07/18
blood sugar diagnostic (Contour Next Test Strips) ##200 08/28/24
lancets 21 gauge (Color Lancets) ##200 08/28/24
carvedilol 3.125 mg tablet 3.125 mg PO BID #60 tabs 09/03/24
clopidogrel 75 mg tablet 75 mg PO DAILY #30 tabs 09/03/24
docusate sodium 100 mg capsule 100 mg PO BID #60 caps 09/03/24
insulin aspar prot-insulin aspart 100 unit/mL (70-30) subcutaneous pen 14 unit (0.14 mL) SC BID@0800,1700 #15 mL 09/03/24
oxycodone 10 mg tablet 5 mg (1/2 x 10 mg) PO Q4HPRN PRN severe pain #30 tabs 09/03/24
pantoprazole 40 mg tablet,delayed release 40 mg PO DAILY #30 tabs 09/03/24
rosuvastatin 5 mg tablet 20 mg (4 x 5 mg) PO QPM #30 tabs 09/03/24
Home Medication Changes
You are started on Plavix 75mg daily to take in addition to aspirin 81mg daily.
You are started on Protonix 40mg daily for protection of your stomach.
Stop Lisinopril, this may be resumed as outpatient depending on your blood pressure.
Your Coreg dose is decreased to 3.125mg twice a day, this may be increased again as outpatient.
Your insulin is changed from 70-30 16 units in morning and 10 units in evening to 14 units twice a day. This may be further adjusted at rehab. You should be continued on a low insulin sliding scale.
Rosuvastatin is increased from 5mg to 20mg.
Pending Results: No
[2024-09-03 12:53] LABS: Glucose - Point of Care 239 mg/dl (70-99)
[2024-09-03] MEDS: NOVOLOG FLEXPEN-MODERATE RESISTANCE 3 UNITS SC (13:40)
--- NOTE | 2024-09-03 14:10 | W.PN.CARDCBS ---
Addendum entered and electronically signed by Geraldo Trujillo DO 09/03/24 14:32:
I saw and examined the patient.
The Institution Director's note was reviewed and I agree with the note.
Comment:
Plan:
Stable from cardiac standpoint for rehab
pt does not require further diuresis and appears euvolemic.
Continue Coreg. Would remain off lisinopril due to hypotension.
Continue dual antiplatelet therapy.
Continue Crestor.
Continue medical therapy of non-STEMI. The patient does not have revascularizable options.
Discussed with nursing and hospital service.
Original Note:
Today's Communication / Plan
-
Might be going to rehab today
No additional Lasix
Cont Coreg, aspirin, Plavix and Crestor as is
Would not restart lisinopril due to hypotension
Impression / Plan
-
PCP: Dr. Barragan
Primary Sand Mill Operator Core Sand: Dr. Mcgrath
Assessment:
Presentation with fall 08/26/24
Right femur fracture status post cephalomedullary nail fixation on 08/27/2024
Postop anemia requiring transfusion
Chest pain
CAD
s/p inferior DC with RCA PCI 2018
NSTEMI, peak trop 6.3 08/31/24
new occlusion of Diag-2, progression disease in the prox and mid LAD however heavily calcified and small caliber vessel as well as 80% in-stent restenosis of mid to distal RCA stent and 60% stenosis of mid RCA proximal to stented segment by ctah
08/31/24
History of ischemic cardiomyopathy, improved
Type I diabetic
Hypertension
Hyperlipidemia
Right carotid bruit
Echo 10/12/2022: EF 61%, basal inferior hypokinesis, MAC, mild to moderate MR
ECHO 08/31/24: EF 40 to 45% with anterior, anteroseptal and apical hypokinesis, M NELSON, mild MR, peak/mean gradients across aortic valve of 14/9 mmHg with no AR, mild TR, PAP 33 mmHg
Plan:
-Patient admitted with fall and right femur fracture 08/26/24. Underwent cephalomedullary nail fixation on 08/27/2024. Hgb dropped to 8.6 postop and 1 unit PRBCs given 08/29/2024. Then chest pain and elevated Troponin 08/30/24, then ST elevation changes on
ECG 08/31/24 and urgent cath that showed new occlusion of Diag-2, progression disease in the prox and mid LAD however heavily calcified and small caliber vessel as well as 80% in-stent restenosis of mid to distal RCA stent and 60% stenosis of mid RCA
proximal to stented segment. Plan made for medical management at this time and LAD intervention could be considered if recurrent symptoms, but would be challenging due to significant calcification in vessel.
-Hgb is stable at 9.4 with DAPT. Patient received 1 unit PRBCs on 08/29/24
-LDL 31 and outpatient dose of Crestor was increased to 20 mg daily this admission
-Outpatient dose of Coreg 3.125 mg BID has been continued
-Outpatient dose of lisinopril 2.5 mg daily is on hold due to hypotension
-Patient is not a candidate for SGLT-2 inhibitor because she is a type 1 diabetic
-EF 40-45% by echo.
-Lasix 20 mg IV x1 was given 09/01/24 and Cre is stable at 0.9 on labs reviewed by me 09/03/24. No evidence of acute HF now. Weight is down to 110 lbs on 09/03/24 using standing scale. Patient was not taking a diuretic prior to admission.
-Acute rehab at [facility] vs SNF rehab at [facility] are being considered
Progress Note - Sand Mill Operator Core Sand
Subjective
Date of Service: September 03, 2024
Feels well, no chest pain
Objective
Labs:
09/03/24 02:30
09/03/24 02:30
Labs
Hgb 9.4 g/dL (12.0-16.0) L 09/03/24 02:30
Hct 27.3 % (37.0-47.0) L 09/03/24 02:30
Plt Count 375 10^3/uL (130-400) 09/03/24 02:30
APTT Cancelled 08/31/24 15:00
Sodium 135 mmol/L (135-145) 09/03/24 02:30
Potassium 4.3 mmol/L (3.5-5.1) 09/03/24 02:30
BUN 23 mg/dl (7-17) H 09/03/24 02:30
Creatinine 0.9 mg/dL (0.6-1.0) 09/03/24 02:30
Glucose 184 mg/dl (70-99) H 09/03/24 02:30
Troponins
08/31/24 09/01/24
19:00 02:54
Troponin I Cancelled 2.550 H*
Vital Signs and I&O:
Vital Signs
Temp Pulse Resp BP Pulse Ox
98.0 F 97 18 99/52 99
09/03/24 12:19 09/03/24 12:00 09/03/24 12:19 09/03/24 11:59 09/03/24 12:19
Vital Signs
Temp Pulse Resp BP Pulse Ox
98.0 F 97 18 99/52 99
09/03/24 12:19 09/03/24 12:00 09/03/24 12:19 09/03/24 11:59 09/03/24 12:19
Intake & Output
09/01/24 09/02/24 09/03/24 09/04/24
06:59 06:59 06:59 06:59
Intake Total 1120 / 1120 840 / 840 120 / 120
Output Total 150 / 150 700 / 700
Balance 970 / 970 140 / 140 120 / 120
Physical Exam
Physical Exam
GEN: NAD
HEENT: EOMI
LUNGS: RA
CV: SR on tele
EXT: No edema
NEURO: Gross non-focal
SKIN: No rash
--- NOTE | 2024-09-03 14:58 | PTCARENOTE ---
Patient seen by hospitalist, cardiology and PT/OT and is ok for discharge to [place]. Report called to Inga in [place], patient transferred with her belongings to room 310 in [place].
--- NOTE | 2024-09-03 15:53 | W.DCSUMMARY ---
Discharge Summary
Discharge Data
Date of Admission: 08/26/24
Date of Discharge: 09/03/24
-
Pending Results: No
Hospital Course
Discharging Physician : Dr. Tiffany Mendoza
Disposition : Acute Rehab
Principal Discharge diagnosis : Mechanical Fall with R hip fracture s/p cephalo-medullary nail on 08/27, NSTEMI Cardiac cath
Hospital Course :
Ms. Yael Pena is a 84 yo woman with hx CAD, DM I, osteoporosis presents to the ER with right hip pain s/p fall. She was found to have a right hip fracture and is status post cephalomedullary nail fixation on 08/28/24.
Post-op course complicated by anemia status post one unit PRBC.
She later developed chest pain and was found to have an STEMI with elevated Troonin of 6.3. She was started on an IV heparin gtt, cardiology consulted and she underwent cardiac catheterization on 08/31/24. Patient was found to have three vessel
disease. Decision made for medical management. TTE with LVEF 40-45%; declined from 61% prior with mid-apical anterior/anteroseptal and apical hypokinesis. She was started on Plavix in addition to aspirin therapy. Lisinopril stopped 2/2
hypotension and Coreg continued at reduced dosing. She received short course of IV lasix, no need for further diuresis as outpatient.
Patient's insulin was adjusted per DM Lead Assistant Manager while hospitalized with changes on DC instructions.
She is discharged to [facility].
Time spent on discharge was 40 minutes.
Important imaging findings :
TTE 08/31/24
CONCLUSIONS
Left ventricle is small in size. Mildly reduced left ventricular systolic
function. Mild concentric left ventricular hypertrophy. Anterior, anteroseptal
and apical hypokinesis. Left ventricular ejection fraction is 40-45%. by visual
estimate.
Normal right ventricular size and function.
Mitral annular calcification. Chordal systolic anterior motion. Mild mitral
regurgitation.
Thickened aortic valve with restricted leaflet motion. Peak/mean gradients
across the aortic valve are 14/9 mmHg respectively. No aortic regurgitation is
seen.
Mild tricuspid regurgitation. Estimated pulmonary artery pressure of 33 mmHg
assuming a right atrial pressure of 3 mmHg.
When compared to prior study on 10/12/2022, the LVEF is now 40-45% (previously
61%) with mid-apical anterior/anteroseptal, and apical hypokinesis;
Procedure findings :
08/27/24
Implants:
10 mm x 125 degree [place] short gamma nail, 95 mm cephalomedullary screw, 35 x 5 mm distal interlocking screw
Procedure and Technique:
Insertion right short cephalomedullary nail
Cardiac Cath 08/31/24
CONCLUSIONS
1. Subacute coronary syndrome. The electrocardiogram this morning was suggestive of an evolving anterior septal wall myocardial infarction, however, the patient was chest pain-free and the troponin was trending lower. The culprit vessel causing
patient's symptoms is likely the second diagonal branch is now noted to be occluded. There has been progressive coronary disease in the proximal LAD and in the mid LAD. However, the LAD is very heavily calcified and is a small caliber vessel.
There is a 80% segment of in-stent restenosis in the mid to distal RCA stent with 60% stenosis in the mid RCA proximal to the stented segment
2. Mild LV dysfunction with wall motion abnormality involving the anterolateral wall likely from occluded diagonal branch
Discharge Plan
-
Patient Disposition: Acute Rehab Facility
Discharge Diagnosis/Procedures: Mechanical Fall with R hip fracture s/p cephalo-medullary nail on 08/27, NSTEMI Cardiac cath
Condition: Fair
Diet: Low Cholesterol and Diabetic, Carb Controlled
Activity: As tolerated
Bathing Restrictions: None
Other Services: PT and OT
Stand Alone Forms: DC Instructions- Cath/EP Lab
Referrals:
Sylvie Becerra PA-C [Specified Professional Personl] - 09/19/24 12:40 pm
Javed Ham MD [Active] - in two weeks
Phan Barragan MD [Family Provider] - in less than 1 week
Additional Discharge Medication Instructions: You are started on Plavix 75mg daily to take in addition to aspirin 81mg daily.
You are started on Protonix 40mg daily for protection of your stomach.
Stop Lisinopril, this may be resumed as outpatient depending on your blood pressure.
Your Coreg dose is decreased to 3.125mg twice a day, this may be increased again as outpatient.
Your insulin is changed from 70-30 16 units in morning and 10 units in evening to 14 units twice a day. This may be further adjusted at rehab. You should be continued on a low insulin sliding scale.
Rosuvastatin is increased from 5mg to 20mg.
Prescriptions:
New
(DME) Contour Next Test Strips Strip
Qty: 200 1RF
Rx Instructions:
test before meals and bedtime 3 times per day As Directed
(DME) lancets [Color Lancets] 21 gauge Misc
Qty: 200 1RF
Rx Instructions:
test before meals and bedtime 3 times per day As Directed
docusate sodium 100 mg Capsule
100 mg PO BID Qty: 60 0RF
carvedilol 3.125 mg Tablet
3.125 mg PO BID Qty: 60 0RF
clopidogrel 75 mg Tablet
75 mg PO DAILY Qty: 30 0RF
pantoprazole 40 mg Tablet,Delayed Release (Dr/Ec)
40 mg PO DAILY Qty: 30 0RF
rosuvastatin 5 mg Tablet
20 mg PO QPM Qty: 30 0RF
oxycodone 10 mg Tablet
5 mg PO Q4HPRN PRN (Reason: severe pain) Qty: 30 0RF
insulin asp prt-insulin aspart 100 unit/mL (70-30) Insulin Pen
14 unit SC BID@0800,1700 Qty: 15 0RF
Continued
cholecalciferol (vitamin D3) 2,000 UNIT tablet
2,000 unit PO DAILY
Patient Comments:
Pt does not know brand or dose.
aspirin 81 MG tablet,chewable
81 mg PO DAILY Qty: 30 0RF
Discontinued
carvedilol 3.125 MG tablet
3.125 mg PO BID Qty: 60 6RF
lisinopril 2.5 MG tablet
2.5 mg PO DAILY Qty: 30 6RF
insulin asp prt-insulin aspart [Novolog Mix 70-30 U-100 Insuln] 100 unit/mL (70-30) Solution
16 unit SC DAILY
insulin asp prt-insulin aspart [Novolog Mix 70-30 U-100 Insuln] 100 unit/mL (70-30) solution
10 unit SC QPM
rosuvastatin 5 mg tablet
5 mg PO QPM
Discharge Orders:
Discharge Patient (As Directed); Ordered 09/03/24
Ordered By: Tiffany Mendoza
Care Plan Goals
Care Plan Goals:
Problem: Readiness for enhanced knowledge related to diagnosis and treatment plan
Goal: Understand your diagnosis and treatment plan needs, including medications if applicable.
Instructions: Know your diagnosis, underlying causes and treatment plan options, including medications if applicable. Consult with your health care team to learn about your diagnosis and treatment plan, including medications if applicable.
Discharge Date and Time
Discharge Date/Time: 09/03/24 14:51
Print Language: SYRIAN
== END 2024-09-03 14:51 | DRG 480 ==
LOC: IVU 20:59
PROVIDERS: Internal Medicine; Internal Medicine Interventional Cardiology; Nurse Practitioner Adult Health; Physician Assistant Medical; ADMITTING PHYSICIAN Hospitalist; ATTENDING PHYSICIAN Student in an Organized Health Care Education/Training Program; CONSULT PHYSICIAN Orthopaedic Surgery; EMERGENCY PHYSICIAN Emergency Medicine; FAMILY PHYSICIAN Family Medicine; OTHER PHYSICIAN Internal Medicine Cardiovascular Disease
PROC: 30233N1 Transfusion of Nonautologous Red Blood Cells into Peripheral Vein, Percutaneous Approach (ICD-10-PCS; 2024-08-27)
PROC: 0QS636Z Reposition Right Upper Femur with Intramedullary Internal Fixation Device, Percutaneous Approach (ICD-10-PCS; 2024-08-27)
PROC: B211YZZ Fluoroscopy of Multiple Coronary Arteries using Other Contrast (ICD-10-PCS; 2024-08-31)
PROC: 4A023N7 Measurement of Cardiac Sampling and Pressure, Left Heart, Percutaneous Approach (ICD-10-PCS; 2024-08-31)
PROC: B215YZZ Fluoroscopy of Left Heart using Other Contrast (ICD-10-PCS; 2024-08-31)
DX: S72.141A Displaced intertrochanteric fracture of right femur, initial encounter for closed fracture (principal); I21.4 Non-ST elevation (NSTEMI) myocardial infarction; D62 Acute posthemorrhagic anemia; I95.1 Orthostatic hypotension; W18.39XA Other fall on same level, initial encounter; E10.65 Type 1 diabetes mellitus with hyperglycemia; E78.5 Hyperlipidemia, unspecified; I10 Essential (primary) hypertension; I25.10 Atherosclerotic heart disease of native coronary artery without angina pectoris; E87.5 Hyperkalemia; I25.2 Old myocardial infarction; M81.0 Age-related osteoporosis without current pathological fracture; I25.5 Ischemic cardiomyopathy; Z79.02 Long term (current) use of antithrombotics/antiplatelets; Z95.5 Presence of coronary angioplasty implant and graft; Z96.642 Presence of left artificial hip joint; Z88.3 Allergy status to other anti-infective agents; Z88.1 Allergy status to other antibiotic agents; Z79.899 Other long term (current) drug therapy; Z79.82 Long term (current) use of aspirin
CPT/HCPCS: 71045; 71275; 73502; 73552; 76000; 80048; 80053; 80061; 82962; 83036; 83880; 84484; 85025; 85027; 85730; 86850; 86900; 86901; 86920; 93005; 93306; 93458; 96374; 97110; 97116; 97163; 97167; 97530; 97535; 99152; 99153; 99285; C1713; C1894; P9016; Q9967

== ENCOUNTER 2024-09-07 12:56 | Inpatient (IN) | payer MEDICARE, OTHER, SELFPAY ==
[2024-09-07] VITALS (13 sets, daily range): BP systolic 93–120; BP diastolic 55–72
--- NOTE | 2024-09-07 07:05 | ED.GENMED ---
History of Present Illness
General
Chief Complaint: Breathing Problem
Source: patient
Exam Limitations: none
Time Seen by Provider: 09/07/24 06:53
Nursing documentation reviewed up to this point in time: agreed with
History of Present Illness
History of Present Illness:
84-year-old female presents emergency department complaining of shortness of breath. She is recovering from [facility] hip surgery, [facility] Her oxygen saturation was 84% on room air.
Past History
Past History
ED Past Medical History: HTN and IDDM
Social History
Tobacco: Non-smoker
Alcohol: None
Drug: None
Personal:
Living: with family
Review of Systems
Review of Systems
Allergies reviewed?: Yes
All Other Systems: Not applicable
Constitutional: Reports no symptoms
EENT: Reports no symptoms
Respiratory: Reports trouble breathing
Cardiac: Reports no symptoms; Denies chest pain
ABD/GI: Reports no symptoms
: Reports no symptoms
Musculoskeletal: Reports no symptoms
Skin: Reports no symptoms
Neurological: Reports no symptoms
Endocrine: Reports no symptoms
Hematologic/Lymphatic: Reports no symptoms
Psychiatric: Reports no symptoms
Phy Exam
Physical Exam
Physical Exam:
Physical Exam
General: Moderate distress, afebrile
Neck: supple. no meningeal signs. normal posterior pharynx
Heart: s1/s2 tachycardia, no murmur. equal radial
pulses.
HEENT: Pupils equal round reactive to light, EOMI
Lungs: Moderate respiratory distress. clear bilaterally
Abdomen: normal bowel sounds. not tender. no CVAT
Neuro: alert and oriented. no focal neurological deficits cranial nerves II through XII intact
Skin: no rash
Psychiatric: well kept. interactive and cooperative
Extremities: no edema. no calf tenderness. negative homans. good distal pulses
Scores
Heart Failure Risk
Heart Failure Risk Score: Yes
History of Stroke or TIA: No
History of intubation for respiratory distress: No
Heart rate on ED arrival >/= 110: No
SaO2 <90% on arrival on room air: Yes
HR >/=110 during 3min walk test (or too ill to perform test): Yes
ECG has acute ischemic changes: No
Urea >/=12mmol/L (BUN 33.6mg/dL): No
Serum CO2>/=35mmol/L: No
Troponin I or T elevated to PA Level (0.4mg/dL): Yes
NT-proBNP >/=5,000ng/L (5,000pg/ml): Yes
HF Risk Score: 6
Admission Status: VERY HIGH RISK 55.3% Consider admission to hospital
Course
Orders/Labs/Results
Orders:
Orders
09/07/24 07:04
Electrocardiogram (*1) Stat
Reason for Study: Other
Other Reason for Exam: pneumonia
Cardiac Monitoring- Treatment ONCE
EKG- Treatment ONCE
IV Insert/Care/Rem.- Treatment PRN
O2 Therapy [RESP] Stat
Titrate/Wean O2 to maintain O2 sat greater than (%): 93
Pulse Ox/cont/shift [RESP] Stat
Quantity: 1
09/07/24 07:05
CT Chest PE Study Urgent
Comment:
Reason For Exam: short of breath, tachycardia
09/07/24 07:18
Complete Blood Count/With Diff Urgent
Comprehensive Metabolic Panel Urgent
Lactic Acid Q4H
Comment: CANCEL 2nd LACTIC ACID IF 1st LACTIC ACID IS LESS THAN 2
NT-proBNP Urgent
Prothrombin Time Urgent
Troponin I Urgent
09/07/24 08:26
Furosemide [Lasix] 40 mg IV NOW STA
Abnormal Lab Results
09/07/24
07:18
WBC 13.5 H 10^3/uL
(4.8-10.8)
RBC 3.04 L 10^6/uL
(4.20-5.40)
Hgb 10.1 L g/dL
(12.0-16.0)
Hct 28.9 L %
(37.0-47.0)
MCH 33.2 H pg
(27.0-31.0)
RDW 17.0 H %
(11.5-14.5)
Plt Count 534 H D 10^3/uL
(130-400)
Abs Immat Gran (auto) 0.1 H 10^3/uL
(0-0.05)
Absolute Neuts (auto) 10.3 H 10^3/uL
(1.4-6.5)
Absolute Monos (auto) 1.1 H 10^3/uL
(0.1-0.6)
Immature Gran % 0.7 H %
(0-0.5)
Neutrophils % 76.6 H %
(42.2-75.2)
Lymphocytes % 12.4 L %
(20.5-51.1)
Chloride 108 H mmol/L
(98-107)
BUN 24 H mg/dl
(7-17)
Glucose 198 H mg/dl
(70-99)
Alkaline Phosphatase 137 H U/L
(38-126)
Troponin I 0.513 H* ng/ml
Total Protein 5.9 L g/dl
(6.3-8.2)
Albumin 3.2 L g/dl
(3.5-5.0)
09/07/24 07:18
09/07/24 07:18
Vital Signs
Initial and Last Documented VS:
Initial Vital Signs
Temp Pulse Resp BP Pulse Ox
97.5 F 100 18 120/66 84
09/07/24 07:01 09/07/24 07:01 09/07/24 07:01 09/07/24 07:01 09/07/24 07:01
Last Documented Vital Signs
Temp Pulse Resp BP Pulse Ox
97.5 F 97 26 110/60 98
09/07/24 07:01 09/07/24 11:45 09/07/24 11:45 09/07/24 11:00 09/07/24 09:15
MDM/Problems Addressed
Differential Diagnosis Includes:
PE, ACS, CHF
MDM/Problems Addressed:
84-year-old female with CHF exacerbation, no signs of PE. Lasix given. Respiratory insufficiency.
Chronic conditions affecting care: CAD and Cardiomyopathy
Acute Exacerbation and/or Progression of Chronic Illness: CAD and Cardiomyopathy
*Radiology
Radiology exam reviewed: radiology read reviewed (CT chest shows CHF, no PE)
*Pulse Oximetry
Patient hypoxic: yes
*EKG
Interpreted by ED Provider?: Yes
EKG Intrepretation Date: 09/07/24
EKG Intrepretation Time: 07:33
Interpretation: abnormal
Comparison EKG: no changes
Heart Rate: 99
Rate: normal
Rhythm: sinus
[place]: normal axis
Interval: normal interval
QRS Pattern: normal QRS
Ischemia: no ischemia
*Clinical Coder Interpretation
Rate: normal
Interpretation: normal
Heart Rate: 98
Rhythm: sinus
*Critical Care Note
Total Time (30-74mins, 75-104mins- exclusive of procedures): Not Applicable
Data Reviewed
Review of Other/Old Records Reveals: Labs (Prior troponin 2.55 on 09/01/2024)
Source: records
Prescriptions/Medications Considered But Not Given:
Heparin not indicated at this time
Patient Management
Social determinants of health affecting care: Living situation and Strong social support
Discussion with other providers: Hospitalist
Escalation/DeEscalation of care consider admission/obs:
Admit indicated
ED Attending Note
-
Portions of this chart may have been created with voice recognition software.� Occasional wrong word or��sound alike� substitutions may have occurred due to the inherent limitations of voice recognition software.
Discharge Plan
Departure
Patient Disposition: Admit
Date of Disposition: 09/07/24
Time of Disposition: 08:28
Admit to: Telemetry
Presentation/result/management discussed w/ accepting MD/DO: Hospitalist
Patient with high blood pressure during this ER visit?: Yes
Condition: Fair
Discharge Problem:
Acute exacerbation of CHF (congestive heart failure)
Prescriptions:
No Action
cholecalciferol (vitamin D3) 2,000 UNIT tablet
2,000 unit PO DAILY
aspirin 81 MG tablet,chewable
81 mg PO DAILY Qty: 30 0RF
docusate sodium 100 mg Capsule
100 mg PO BID Qty: 60 0RF
carvedilol 3.125 mg Tablet
3.125 mg PO BID Qty: 60 0RF
clopidogrel 75 mg Tablet
75 mg PO DAILY Qty: 30 0RF
pantoprazole 40 mg Tablet,Delayed Release (Dr/Ec)
40 mg PO DAILY Qty: 30 0RF
insulin asp prt-insulin aspart 100 unit/mL (70-30) Insulin Pen
14 unit SC BID@0800,1700 Qty: 15 0RF
rosuvastatin [Crestor] 20 mg Tablet
20 mg PO QPM
Interventions
Interventions:
*Risk Screen - Suicide Last Done: 09/07/24 07:01
*General Assessment Last Done: 09/07/24 07:11
*Neglect/Abuse Screening Last Done: 09/07/24 07:01
*ED- Fall Risk Assessment Last Done: 09/07/24 07:11
*ED COVID-19 Vaccine History Last Done: 09/07/24 07:11
ED- Cardiac Assessment Last Done: 09/07/24 07:11
ED- Pulmonary Assessment Last Done: 09/07/24 07:11
Discharge Date and Time
Print Language: BULGARIAN
[2024-09-07 07:26] LABS: % Basophils 0.4 % (0-2); % Eosinophils 1.6 % (0-6); % Immature Granulocytes 0.7 % (0-0.5); % Lymphocytes 12.4 % (20.5-51.1); % Monocytes 8.3 % (1.7-9.3); % Neutrophils 76.6 % (42.2-75.2); Absolute Basophils 0.1 10^3/uL (0-0.2); Absolute Eosinophils 0.2 10^3/uL (0-0.7); Absolute Immature Granulocytes 0.1 10^3/uL (0-0.05); Absolute Lymphocytes 1.7 10^3/uL (1.2-3.4); Absolute Monocytes 1.1 10^3/uL (0.1-0.6); Absolute Neutrophils 10.3 10^3/uL (1.4-6.5); Hematocrit 28.9 % (37.0-47.0); Hemoglobin 10.1 g/dL (12.0-16.0); Mean Corp Hgb Conc. 34.9 g/dL (33.0-37.0); Mean Corpuscular Hgb 33.2 pg (27.0-31.0); Mean Corpuscular Volume 95.1 fL (81.0-99.0); Mean Platelet Volume 9.4 fL (7.4-10.4); Nucleated Red Blood Cells % 0 %; Platelet Count 534 10^3/uL (130-400); Red Blood Cell Count 3.04 10^6/uL (4.20-5.40); White Blood Cell Count 13.5 10^3/uL (4.8-10.8)
[2024-09-07 07:38] LABS: ALT (SGPT) 21 U/L (0-35); AST (SGOT) 29 U/L (14-36); Albumin 3.2 g/dl (3.5-5.0); Alkaline Phosphatase 137 U/L (38-126); Blood Urea Nitrogen 24 mg/dl (7-17); Carbon Dioxide 23 mmol/L (22-30); Chloride 108 mmol/L (98-107); Glucose 198 mg/dl (70-99); Potassium 4.8 mmol/L (3.5-5.1); Sodium 138 mmol/L (135-145); Total Bilirubin 0.8 mg/dl (0.2-1.3); Total Protein 5.9 g/dl (6.3-8.2); eGFR > 60.00
[2024-09-07 07:40] LABS: Lactic Acid 1.6 mmol/L (0.7-2.0)
[2024-09-07 07:48] LABS: INR 1.02; PT 13.7 Sec (11.4-14.6)
[2024-09-07 07:53] LABS: NT-proBNP 22300 pg/ml; Troponin I 0.513 ng/ml
[2024-09-07] MEDS: LASIX 40 MG IV (08:34)
--- NOTE | 2024-09-07 12:23 | CON.CAR ---
Addendum entered and electronically signed by Sugar Abdi DO 09/08/24 08:09:
I saw and examined the patient.
The Dock Grader's note was reviewed and I agree with the note.
Comment: Late entry; Patient seen and examined 09/07/2024 with cardiac PATi Conley is an 84 year old female with PMH of DM, HTN, HLD, CAD w/ prior RCA PCI in 2019, and ischemic cardiomyopathy. She was recently hospitalized at [facility] after a fall resulted
in R femur fracture and she underwent cephalomedullary nail fixation 08/27/2024. Post-op developed chest pain and had NSTEMI w/ trop peaking at 6.3. She had cardiac catheterization 08/31 which revealed new occlusion of Diag-2, progression of disease in
the LAD, as well as 80% in-stent restenosis of the RCA w/ 60% stenosis proximal to stented segment. Plan was for medical management. She received a single dose of IV lasix on 09/01, but appeared overall well without evidence of acute heart failure,
so was discharged to [facility] without standing dose of diuretic. She has been at [facility] since 09/03 and on review of notes, was noncompliant w/ heart failure/diabetic diet, and diet order was changed to regular diet as she was not eating. She tells
me over the past few days she has had worsening shortness of breath and LE edema. Given worsening SOB w/ hypoxia on VS this AM, she was brought to ER and was found to be in acute heart failure by CT [place] [address].
General: Frail 84-year-old female, no acute distress on nasal cannula O2
HEENT: mmm
Respiratory: Decreased breath sounds with fine crackles at the bases. No wheezes or rhonchi
Cardiac: S1/S2 and Regular Rhythm
EXT: + 1 edema
Plan:
-Presented from [facility] for evaluation of worsening shortness of breath in the setting of dietary indiscretion.
-Admitted with acute heart failure exacerbation. proBNP elevated at 22,300, chest CT with moderate bilateral pleural effusions and findings consistent with mild CHF.
-Agree with IV Lasix 40mg daily. Creat stable at 0.9.
-Weight 127 pounds is up compared to discharge weight which was reported at 110 pounds.
-Continue to follow daily weights, I&O's
-Echo 08/31/2024 noted mildly reduced EF of 40 to 45%. No need to repeat at this time
-Elevated troponin noted at 0.513, down compared to peak on 08/31/2024.
-She has no chest pain currently, but notes she has had intermittent heaviness.
-Recent cardiac catheterization 08/31/2024 as noted above with multivessel coronary disease being managed medically. Continue aspirin and Plavix.
-Continue rosuvastatin 20 mg daily.
-Wean O2 as able.
Patient does not want aggressive measures and has indicated she wants to be 'comfortable '. Hospice consult has been placed by primary
Original Note:
Consultation
Consultation Request
Date/Time Consultation Requested: 09/07/2024
Date/Time Consultation Performed: 09/07/2024
Requesting Provider: Dr. Alejandra White
Performing Provider: Sandra Resendiz PA-C for Dr. Abdi
Reason for Consultation: CHF
Medical History
-
History of Present Illness:
HPI: Yael is an 84 year old female with PMH of DM, HTN, HLD, CAD w/ prior RCA PCI in 2019, and ischemic cardiomyopathy. She was recently hospitalized at [facility] after a fall resulted in R femur fracture and she underwent cephalomedullary nail fixation
08/27/2024. Post-op developed chest pain and had NSTEMI w/ trop peaking at 6.3. She had cardiac catheterization 08/31 which revealed new occlusion of Diag-2, progression of disease in the LAD, as well as 80% in-stent restenosis of the RCA w/ 60%
stenosis proximal to stented segment. Plan was for medical management. She received a single dose of IV lasix on 09/01, but appeared overall well without evidence of acute heart failure, so was discharged to [facility] without standing dose of diuretic.
She has been at [facility] since 09/03 and on review of notes, was noncompliant w/ heart failure/diabetic diet, and diet order was changed to regular diet as she was not eating. She tells me over the past few days she has had worsening shortness of
breath and LE edema. Given worsening SOB w/ hypoxia on VS this AM, she was brought to ER and was found to be in acute heart failure by CT [place] [address]. She was given a single dose of IV lasix and has had good response, but
still feels SOB.
PMH:
Right femur fracture s/p cephalomedullary nail fixation on 08/27/2024
CAD
s/p inferior MO with RCA PCI 2018
NSTEMI, peak trop 6.3 08/31/24
new occlusion of Diag-2, progression disease in the prox and mid LAD however heavily calcified and small caliber vessel as well as 80% in-stent restenosis of mid to distal RCA stent and 60% stenosis of mid RCA proximal to stented segment by cath
08/31/24
h/o ischemic cardiomyopathy, improved
Type I diabetic
Hypertension
Hyperlipidemia
Right carotid bruit
Past Medical History
Past Medical History: Other (in HPI)
Social History
Tobacco: Non-Smoker
Alcohol: None
Personal:
Living: With Family (had been in [facility] since 09/03)
Employment: Retired
Family History
Family History: Cancer
Allergies / Home Medications
Allergy/AdvReac Type Severity Reaction Status Date / Time
bacitracin Allergy Unknown Unknown Verified 09/07/24 07:01
[From Neosporin
([id number])]
neomycin Allergy Unknown Unknown Verified 09/07/24 07:01
[From Neosporin
([id number])]
polymyxin B Allergy Unknown Verified 09/07/24 07:01
[From Neosporin
([id number])]
�Medication �Instructions �Recorded �Confirmed �Type
cholecalciferol (vitamin D3) 50 2,000 unit PO DAILY 08/05/18 09/07/24 History
mcg (2,000 unit) tablet
aspirin 81 mg chewable tablet 81 mg PO DAILY ##30 08/07/18 09/07/24 Rx
carvedilol 3.125 mg tablet 3.125 mg PO BID #60 tabs 09/03/24 09/07/24 Rx
clopidogrel 75 mg tablet 75 mg PO DAILY #30 tabs 09/03/24 09/07/24 Rx
docusate sodium 100 mg capsule 100 mg PO BID #60 caps 09/03/24 09/07/24 Rx
insulin aspar prot-insulin aspart 14 unit (0.14 mL) SC BID@0800,1700 09/03/24 09/07/24 Rx
100 unit/mL (70-30) subcutaneous #15 mL
pen
pantoprazole 40 mg tablet,delayed 40 mg PO DAILY #30 tabs 09/03/24 09/07/24 Rx
release
rosuvastatin 20 mg tablet (Crestor) 20 mg PO QPM 09/07/24 09/07/24 History
Review of Systems
-
History Source: Patient
All other systems: Negative unless noted
Physical Exam
Vital Signs
Temp Pulse Resp BP Pulse Ox
97.5 F 97 26 110/60 98
09/07/24 07:01 09/07/24 11:45 09/07/24 11:45 09/07/24 11:00 09/07/24 09:15
Lab Results
09/07/24 07:18
09/07/24 07:18
Troponin I 0.513 ng/ml H* 09/07/24 07:18
Xhq-S-Oxpfebywlff Pept 53012 pg/ml 09/07/24 07:18
Physical Exam
General: Well Developed and Well Nourished
HEENT: Normocephalic, Anicteric and Moist Mucous Membranes
Respiratory: Crackles and Non Labored Respirations
Cardiac: S1/S2 and Regular Rhythm
Musculoskeletal: No Clubbing, No Cyanosis and Edema
Skin: Warm and Dry
Neuro: AO x 3 and Nonfocal/Grossly Intact
Psych: Calm
Impression / Plan
-
PCP: Dr. Barragan
Bottle Filler: Dr. Mcgrath
Impression:
Presented with SOB
Acute HFmrEF
Right femur fracture s/p cephalomedullary nail fixation on 08/27/2024
CAD
s/p inferior MO with RCA PCI 2018
NSTEMI, peak trop 6.3 08/31/24
new occlusion of Diag-2, progression disease in the prox and mid LAD however heavily calcified and small caliber vessel as well as 80% in-stent restenosis of mid to distal RCA stent and 60% stenosis of mid RCA proximal to stented segment by cath
08/31/24
h/o ischemic cardiomyopathy, improved
Type I diabetic
Hypertension
Hyperlipidemia
Right carotid bruit
Echo 10/12/2022: EF 61%, basal inferior hypokinesis, MAC, mild to moderate MR
Echo 08/31/2024: EF 40 to 45% with anterior, anteroseptal and apical hypokinesis, M NELSON, mild MR, peak/mean gradients across aortic valve of 14/9 mmHg with no AR, mild TR, PAP 33 mmHg
Plan:
-Presented from [facility] for evaluation of worsening shortness of breath in the setting of dietary indiscretion.
-Admitted with acute heart failure exacerbation. proBNP elevated at 22,300, chest CT with moderate bilateral pleural effusions and findings consistent with mild CHF.
-Agree with IV Lasix 40mg daily. Creat stable at 0.9.
-Weight 127 pounds is up compared to discharge weight which was reported at 110 pounds.
-Continue to follow daily weights, I&O's
-Echo 08/31/2024 noted mildly reduced EF of 40 to 45%. No need to repeat at this time
-SR by ECG, no acute ischemic changes noted.
-BP stable. Continue Coreg.
-Elevated troponin noted at 0.513, down compared to peak on 08/31/2024. Continue to follow.
-She has no chest pain currently, but notes she has had intermittent heaviness.
-Recent cardiac catheterization 08/31/2024 as noted above with multivessel coronary disease being managed medically. Continue aspirin and Plavix.
-Continue rosuvastatin 20 mg daily.
-Wean O2 as able.
-Patient notes she does not want any heroic measures and wishes to be comfortable. DNR CODE STATUS noted
HPI: Yael is an 84 year old female with PMH of DM, HTN, HLD, CAD w/ prior RCA PCI in 2019, and ischemic cardiomyopathy. She was recently hospitalized at [facility] after a fall resulted in R femur fracture and she underwent cephalomedullary nail fixation
08/27/2024. Post-op developed chest pain and had NSTEMI w/ trop peaking at 6.3. She had cardiac catheterization 08/31 which revealed new occlusion of Diag-2, progression of disease in the LAD, as well as 80% in-stent restenosis of the RCA w/ 60%
stenosis proximal to stented segment. Plan was for medical management. She received a single dose of IV lasix on 09/01, but appeared overall well without evidence of acute heart failure, so was discharged to [facility] without standing dose of diuretic.
She has been at [facility] since 09/03 and on review of notes, was noncompliant w/ heart failure/diabetic diet, and diet order was changed to regular diet as she was not eating. She tells me over the past few days she has had worsening shortness of
breath and LE edema. Given worsening SOB w/ hypoxia on VS this AM, she was brought to ER and was found to be in acute heart failure [place] [address]. She was given a single dose of IV lasix and has had good response, but
still feels SOB.
Data Reviewed
-
EKG: Tracing Personally Visualized and interpreted
CT Scan: Report Reviewed by me
Labs: Labs Reviewed by me
Old Records: Reviewed
--- NOTE | 2024-09-07 13:40 | HPS.HSE ---
Family Physician
-
Family Physician: Hakan Puckett
Chief Complaint
-
Shortness of breath
History of Present Illness
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
presented to the ER reporting shortness of breath and lower extremity edema since 4 days. Patient is from [facility] where she is recovering from her hip surgery and NSTEMI with RCA stent. SOB worsened yesterday and she got a CT chest PE study,
with no evidence of PE. Upon arrival to the ED she was hypoxemic at 84% on room air, started on supplemental O2. ER workup�WBC 13.5, hemoglobin 10.1, platelets 534, BUN 24, protein 5.9, albumin 3.2, BNP 22,300. Repeat CT chest showed moderate
bilateral pleural effusions, pulmonary congestion, no evidence of PE. She was given IV Lasix 40 mg in the ED.
Medical History
Past Medical History
Past Medical History: Reports CHF, HTN, Hypercholesterolemia and IDDM
Past Surgical History: Reports Orthopedic
Social History
Tobacco: Non-smoker
Alcohol: None
Personal:
Living: With Family
Employment: Retired
Family History
Family History: Cancer
Allergies / Home Medications
Allergies reflects when Allergies were last updated in [employer].
Home Medications with original date entered in [employer]
Allergy/Medication List:
Allergies
Allergy/AdvReac Type Severity Reaction Status Date / Time
bacitracin Allergy Unknown Unknown Verified 09/07/24 07:01
[From Neosporin
([id number])]
neomycin Allergy Unknown Unknown Verified 09/07/24 07:01
[From Neosporin
([id number])]
polymyxin B Allergy Unknown Verified 09/07/24 07:01
[From Neosporin
([id number])]
Home Medications
cholecalciferol (vitamin D3) 50 mcg (2,000 unit) tablet 2,000 unit PO DAILY 08/05/18
aspirin 81 mg chewable tablet 81 mg PO DAILY ##30 08/07/18
carvedilol 3.125 mg tablet 3.125 mg PO BID #60 tabs 09/03/24
clopidogrel 75 mg tablet 75 mg PO DAILY #30 tabs 09/03/24
docusate sodium 100 mg capsule 100 mg PO BID #60 caps 09/03/24
insulin aspar prot-insulin aspart 100 unit/mL (70-30) subcutaneous pen 14 unit (0.14 mL) SC BID@0800,1700 #15 mL 09/03/24
pantoprazole 40 mg tablet,delayed release 40 mg PO DAILY #30 tabs 09/03/24
rosuvastatin 20 mg tablet (Crestor) 20 mg PO QPM 09/07/24
Review of Systems
-
A 12 point ROS was completed and negative except as noted: Yes
Physical Exam
Vital Signs
Vital Signs
Temp Pulse Resp BP Pulse Ox
97.5 F 106 13 115/72 98
09/07/24 07:01 09/07/24 13:30 09/07/24 13:30 09/07/24 13:00 09/07/24 13:30
Physical Exam
General: Well Developed, Well Nourished and No Apparent Distress
HEENT: NormoCephalic, Anicteric and Moist mucous membranes
Respiratory: Clear
Cardiac: S1/S2, Regular Rhythm and Other (1+ pedal edema)
GI: Soft, Non Tender, Non Distended and Normal Bowel Sounds
Skin: Warm and Dry
Neuro: Awake, Alert, Oriented and AO x 3
Laboratory Results
-
09/07/24 07:18
09/07/24 07:18
Laboratory Results
PT 13.7 Sec (11.4-14.6) 09/07/24 07:18
INR 1.02 09/07/24 07:18
Lactic Acid Cancelled 09/07/24 11:15
Total Bilirubin 0.8 mg/dl (0.2-1.3) 09/07/24 07:18
AST 29 U/L (14-36) 09/07/24 07:18
ALT 21 U/L (0-35) 09/07/24 07:18
Alkaline Phosphatase 137 U/L (38-126) H 09/07/24 07:18
Troponin I 0.513 ng/ml H* 09/07/24 07:18
Impression/Plan
-
IMPRESSION:
84-year-old female admitted for the management of acute on chronic HFmreEF
PLAN:
#Acute exacerbation of HFmrEF
Recent hospital admission with NSTEMI, received only a short course of diuresis, no loop diuretic at discharge.
Patient became hypervolemic in the context of reduced EF.
proBNP elevated at 22,[address] evidence of moderate bilateral pleural effusions, mild CHF
Recent echo�EF�40 to 45%
Start IV Lasix 40 mg once daily
Monitor I/os, weights
Monitor telemetry
Continue GDMT with beta-angela, cannot do SGLT2 due to type I DM
Low-dose NELSON if pressure tolerates
No added salt, fluid restriction�1800 mL
#Elevated troponin
Recent NSTEMI with multivessel coronary artery disease, RCA stent placement
Repeat troponin
If any increase, continue to monitor with serial EKG, repeat TTE
Continue aspirin, clopidogrel
#Leukocytosis
Persistently elevated WBC count, (13.5), from her prior admission.
Patient is afebrile, no symptoms.
Will trend CBC, temperature curve
#Anemia/thrombocytosis
Patient recently had a blood transfusion postsurgery, last admission
Hemoglobin at her baseline today�10.1
Will monitor CBC
Will check iron studies
Likely reactive thrombocytosis
#Essential hypertension
Continue Coreg�3.125 mg
#Type I DM
NovoLog 70/30.
Will add LSSI
Accu-Cheks
#Hyperlipidemia
Continue rosuvastatin
#GERD
Continue PPI
DNR
DVT prophylaxis�Lovenox subcu
Admit to telemetry.
--- NOTE | 2024-09-07 13:54 | W.PN.UPDATE ---
Update Note
Progress Note Update
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
hip fracture s/p cephalomedullary nail (08/27/2024) that is presenting to the ED today with shortness of breath.� She was sent from [facility] where she was recovering status post recent right hip surgery and NSTEMI with RCA stent placement on
08/31/2024.� Upon arrival to the ED she had SpO2 84% on room air and was placed on to supplemental O2 with SpO2 in the high 90s.� Initial labs with WBC 13.5, hemoglobin 10.1, platelet 534, BUN 24, protein 5.9, albumin 3.2, BNP 47913.� Initial ECG
showed NSR with low voltage QRS, no acute ischemic findings, initial troponin 0.513 (2.55 on last check 09/01).� CTA thorax showed moderate bilateral pleural effusions and pulmonary congestion, no signs of pulmonary emboli.� Was given IV Lasix 40 mg
in the ED
On exam she has reduced bibasilar sounds, no JVD, 1+ lower extremity edema.� Borderline tachycardic with regular rhythm.� No FND, AO x 4.� 2+ pulses symmetrically.� Benign abdomen
Decompensated HFmrEF.� Recently discharged with NSTEMI, no standing loop diuretic, likely became hypervolemic in context of reduced EF.� BNP 22,000 with hypervolemic exam.� Will continue with IV Lasix 40 mg daily for now.� Continue GDMT with
beta-angela, DAPT (for 1 year), high intensity statin.� Consider adding on low-dose ACEi if blood pressure tolerates.� Could also consider transitioning carvedilol to metoprolol to allow additional GDMT.� No role for SGLT2i with type 1 diabetes
history.� Monitor on telemetry.� Monitor BMP + I/Os + Daily weights
Elevated troponin in context of obstructive CAD.� Likely downtrending from recent NSTEMI and RCA stent.� Will repeat troponin x 1 just to ensure it is continuing to downtrend and not increasing.� If uptrending continue to monitor with serial ECG and
repeat TTE
Leukocytosis.� Review of previous labs shows fairly persistent elevation, though mild, and WBC with intermittent occurrences prior to that.� No obvious signs of infection at this time.� Will trend CBC and temperature curve off of antibiotics.
DVT prophylaxis with SQ Lovenox
No added salt, 1800 mL fluid restriction
Admit to telemetry
DNR, consulted hospice at patient request, will update patient's son/POA (Lambert Pena)
I will be admitting Yael Pena to telemetry.� She is at high risk for morbidity and mortality due to decompensated heart failure and will require intensive monitoring of her volume status and respiratory status.� Will require titration of her
diuretic regimen and evaluation by cardiology.� I have discussed this case with the ED attending and upholsterer assembly line.� I have also discussed this case with the resident and agree with all documentation unless otherwise specified
See resident H&P for more detail when available
[2024-09-07 15:03] LABS: Troponin I 0.499 ng/ml
[2024-09-07] MEDS: ATIVAN 0.5 MG PO (15:44)
[2024-09-07 17:42] LABS: Glucose - Point of Care 352 mg/dl (70-99)
[2024-09-07] MEDS: LOVENOX 40 MG SC (18:32)
[2024-09-07] MEDS: CRESTOR 20 MG PO (18:32)
[2024-09-07] MEDS: NOVOLOG MIX 70/30 FLEXPEN 14 UNITS SC (18:32)
[2024-09-07] MEDS: COLACE 100 MG PO (19:40)
[2024-09-07] MEDS: COREG 3.125 MG PO (19:41)
[2024-09-07 21:46] LABS: Glucose - Point of Care 282 mg/dl (70-99)
[2024-09-08 03:35] VITALS: BP 94/59
[2024-09-08 06:00] VITALS: BMI 22.4
[2024-09-08 06:59] LABS: % Basophils 0.4 % (0-2); % Eosinophils 0.8 % (0-6); % Immature Granulocytes 0.8 % (0-0.5); % Lymphocytes 11.7 % (20.5-51.1); % Monocytes 8.7 % (1.7-9.3); % Neutrophils 77.6 % (42.2-75.2); Absolute Basophils 0.1 10^3/uL (0-0.2); Absolute Eosinophils 0.1 10^3/uL (0-0.7); Absolute Immature Granulocytes 0.1 10^3/uL (0-0.05); Absolute Lymphocytes 1.5 10^3/uL (1.2-3.4); Absolute Monocytes 1.1 10^3/uL (0.1-0.6); Absolute Neutrophils 9.7 10^3/uL (1.4-6.5); Hematocrit 26.7 % (37.0-47.0); Hemoglobin 9.3 g/dL (12.0-16.0); Mean Corp Hgb Conc. 34.8 g/dL (33.0-37.0); Mean Corpuscular Hgb 32.4 pg (27.0-31.0); Mean Platelet Volume 9.4 fL (7.4-10.4); Nucleated Red Blood Cells % 0 %; Platelet Count 528 10^3/uL (130-400); Red Blood Cell Count 2.87 10^6/uL (4.20-5.40); White Blood Cell Count 12.5 10^3/uL (4.8-10.8)
[2024-09-08 07:24] LABS: ALT (SGPT) 20 U/L (0-35); AST (SGOT) 28 U/L (14-36); Albumin 2.8 g/dl (3.5-5.0); Alkaline Phosphatase 138 U/L (38-126); Blood Urea Nitrogen 33 mg/dl (7-17); Calcium 8.5 mg/dl (8.4-10.2); Carbon Dioxide 20 mmol/L (22-30); Chloride 107 mmol/L (98-107); Estimated Creatinine Clearance 20 ml/min; Glucose 174 mg/dl (70-99); Iron 46 ug/dl (37-170); Magnesium 1.7 mg/dl (1.6-2.3); Potassium 4.7 mmol/L (3.5-5.1); Sodium 135 mmol/L (135-145); Total Bilirubin 0.6 mg/dl (0.2-1.3); Total Protein 5.3 g/dl (6.3-8.2); eGFR 29.57
[2024-09-08 07:34] LABS: Percent Saturation 20 % (20-50); Total Iron Binding Capacity 230 ug/dl (265-497)
[2024-09-08 08:00] VITALS: BP 97/53
[2024-09-08] MEDS: PLAVIX 75 MG PO (08:28)
[2024-09-08] MEDS: PROTONIX 40 MG PO (08:28)
[2024-09-08] MEDS: VITAMIN D3 (cholecalciferol) 50 MCG PO (08:28)
[2024-09-08] MEDS: COLACE 100 MG PO (08:28)
[2024-09-08] MEDS: COREG 3.125 MG PO (08:28)
[2024-09-08] MEDS: LOW STRENGTH ASPIRIN 81 MG PO (08:28)
[2024-09-08] MEDS: LASIX 40 MG IV (08:29)
[2024-09-08] MEDS: NOVOLOG MIX 70/30 FLEXPEN 14 UNITS SC (08:32)
[2024-09-08 08:43] LABS: Glucose - Point of Care 227 mg/dl (70-99)
[2024-09-08] MEDS: NOVOLOG FLEXPEN-LOW RESISTANCE 2 UNITS SC ×2 (09:01→12:31)
--- NOTE | 2024-09-08 09:13 | W.PN.HOSP.TC ---
Today's Communication/Plan
-
.
Assessment / Plan
Assessment / Plan
84-year-old female admitted for the management of acute on chronic HFmreEF
Patient wants to go hospice, 'I just want to be let go', however her words. Spoke to her son who is the POA, yesterday about goals of care discussion, he said he would like to speak with her first.
PLAN:
#Acute exacerbation of HFmrEF
Recent hospital admission with NSTEMI, received only a short course of diuresis, no loop diuretic at discharge.
Patient became hypervolemic in the context of reduced EF.
proBNP elevated at 22,[address] evidence of moderate bilateral pleural effusions, mild CHF
Recent echo�EF�40 to 45%
Start IV Lasix 40 mg once daily
Monitor I/os, weights
Monitor telemetry
Continue GDMT with beta-angela, cannot do SGLT2 due to type I DM
Low-dose NELSON if pressure tolerates
No added salt, fluid restriction�1800 mL
Patient with soft blood pressure and borderline tachycardic
Lasix on hold
Switched from Coreg to metoprolol tartrate
Cardiology on board
#MARCO ANTONIO
Likely prerenal due to decreased perfusion
Creatinine trending up from 0.9 at admission to 1.7 today
Lasix held
Check BMP
#Elevated troponin
Recent NSTEMI with multivessel coronary artery disease, RCA stent placement
Repeat troponin trending down 0.53 > 0.49
Continue aspirin, clopidogrel
#Leukocytosis
Persistently elevated WBC count, 13.5 > 12.5
Patient is afebrile, no symptoms.
Will trend CBC, temperature curve
#Anemia/thrombocytosis
Patient recently had a blood transfusion postsurgery, last admission
Hemoglobin at her baseline today�10.1
Will monitor CBC
Likely reactive thrombocytosis
#Essential hypertension
Metoprolol tartrate
#Type I DM
NovoLog 70/30.
Will add LSSI
Accu-Cheks
#Hyperlipidemia
Continue rosuvastatin
#GERD
Continue PPI
DNR
DVT prophylaxis�Lovenox subcu
Anticipated Discharge: 24 - 48 hours
Subjective/Interval History
-
Date of Service: September 08, 2024
Patient reports being very tired and short of breath
Objective Data
-
Labs:
Laboratory Results
09/08/24
06:41
WBC 12.5 H
Hgb 9.3 L
Hct 26.7 L
Plt Count 528 H
Sodium 135
Potassium 4.7
Chloride 107
Carbon Dioxide 20 L
BUN 33 H
Creatinine 1.7 H
Glucose 174 H
Calcium 8.5
Total Bilirubin 0.6
AST 28
ALT 20
Alkaline Phosphatase 138 H
Vital Signs:
Vital Signs
Temp Pulse Resp BP Pulse Ox
98.2 F 97 16 97/53 95
09/08/24 08:00 09/08/24 08:28 09/08/24 08:00 09/08/24 08:28 09/08/24 08:00
I&O
09/07/24 09/08/24 09/09/24
06:59 06:59 06:59
Intake Total 240 / 240
Output Total 700 / 700
Balance -460 / -460
Review of Systems
-
All other systems: Reviewed and negative (Except as mentioned above)
Physical Exam
-
General: No Apparent Distress
HEENT: Normocephalic and Atraumatic
Respiratory: Clear to Auscultation and Other (On 2 L NC)
Cardiac: Regular Rhythm, S1/S2, Tachycardic and Other (1+ edema lower extremities); Negative JVD
GI: Soft, Nontender, Nondistended and Normal Bowel Sounds
Skin: Warm and Dry
Neuro: Awake, Alert, Oriented and AO x 3
--- NOTE | 2024-09-08 10:03 | HOSPNOTE ---
Addendum entered by Yaz Vasquez RN 09/08/24 10:59:
Spoke to son Lambert. He is coming up from [place] today. He plans to orange picker spouse and arrive to the hospital by 4 pm. Spouse has Parkinsons and they are trying to manage him at home as well. Reviewed inpatient hospice vs home hospice. Reviewed
comfort measures as well. It sounds like the spouse and Lambert are in agreement to respecting patients wishes on focusing on comfort. Spoke to attending who feels patient could likely go home. Attending aware of son and spouses arrival. I will stay in
communication with son and will follow and be available as decisions are made.
Original Note:
Hospice referral received. Spoke to spouse Mr. Pena who directed nurse to speak to son Lambert who he reports was driving up from [place] to see patient. Called and left a voicemail for Lambert. Will await his return call. More information to follow.
--- NOTE | 2024-09-08 11:13 | CM ---
CM following re: discharge planning.
Reviewed pt's chart, met with pt.
Pt is an 84 year old female admitted from [facility] with primary dx Acute exacerbation of HFmrEF.
Pt reports she lives with 2SH, 2 steps to enter, stays on the first floor. Pt reports she has son and he lives in [place]. 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
Pt stated she feels she needs 'just peace and let me go, I cannot do it anymore'. Emotional support offered and provided. Pt requested hospice care and she preferred hospice. A referral to hospice made.
PCP: Hakan Puckett
Pharmacy: [facility].
D/C plan: Hospice with hospice: inpatient hospice vs home hospice.
CM will follow with discharge plan updates as hospitalization progresses
[2024-09-08 12:11] LABS: Glucose - Point of Care 204 mg/dl (70-99)
[2024-09-08 12:15] VITALS: BP 97/53
[2024-09-08 16:00] VITALS: BP 96/56
[2024-09-08] MEDS: NOVOLOG FLEXPEN-LOW RESISTANCE SC (16:41)
[2024-09-08] MEDS: NOVOLOG MIX 70/30 FLEXPEN SC (16:41)
[2024-09-08] MEDS: LOVENOX SC (16:42)
[2024-09-08] MEDS: CRESTOR PO (16:42)
[2024-09-08] MEDS: ATIVAN 0.5 MG PO ×2 (16:43→21:10)
--- NOTE | 2024-09-08 16:57 | PTCARENOTE ---
Pt's son and at bedside. Discussed pt's wishes of perusing hospice. Pt is refusing all medications and lab draws at this time. Dr Obrien notified. They will follow up tomorrow. Pt's son had been in touch w/ hospital account liaison today and will
follow up tomorrow. 0.5mg PO Ativan given at this time for pt feeling anxious.
[2024-09-08 18:18] VITALS: BP 94/47
--- NOTE | 2024-09-08 18:25 | PTCARENOTE ---
Pt just arrived in her bed from [facility] acute. Pt is alert and oriented x3. Denies any pain. Placed on tele, NSR HR 80's-90's. Lungs clear but diminished. Pt came up on 2L O2 NC. Pt reiterating to nurse that she does not want any medications given to her
but will take PRN Ativan if she feels she needs it. VSS. Pt currently resting in bed. Call griffin is within reach.
[2024-09-08 19:00] VITALS: BP 93/45
[2024-09-08] MEDS: COLACE PO (21:10)
[2024-09-09] MEDS: MORPHINE SULFATE 1 MG IV ×4 (03:16→18:09)
[2024-09-09 06:17] LABS: Hematocrit 26.8 % (37.0-47.0); Hemoglobin 9.4 g/dL (12.0-16.0); Mean Corp Hgb Conc. 35.1 g/dL (33.0-37.0); Mean Corpuscular Hgb 33.6 pg (27.0-31.0); Mean Corpuscular Volume 95.7 fL (81.0-99.0); Mean Platelet Volume 9.4 fL (7.4-10.4); Platelet Count 530 10^3/uL (130-400); Red Cell Dist. Width 17.2 % (11.5-14.5); White Blood Cell Count 13.5 10^3/uL (4.8-10.8)
[2024-09-09 06:36] LABS: ALT (SGPT) 19 U/L (0-35); AST (SGOT) 23 U/L (14-36); Albumin 2.8 g/dl (3.5-5.0); Alkaline Phosphatase 155 U/L (38-126); Blood Urea Nitrogen 43 mg/dl (7-17); Calcium 8.1 mg/dl (8.4-10.2); Carbon Dioxide 16 mmol/L (22-30); Chloride 108 mmol/L (98-107); Estimated Creatinine Clearance 10 ml/min; Glucose 259 mg/dl (70-99); Sodium 135 mmol/L (135-145); Total Bilirubin 0.7 mg/dl (0.2-1.3); Total Protein 5.4 g/dl (6.3-8.2); eGFR 13.34
[2024-09-09 07:00] VITALS: BP 114/67
--- NOTE | 2024-09-09 07:07 | W.PN.HOSP.TC ---
Today's Communication/Plan
-
Comfort care
Assessment / Plan
Assessment / Plan
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
Hospice consult placed.
PLAN:
All life-prolonging medications have been discontinued.
Continue as needed morphine, lorazepam, Zofran.
Anticipated Discharge: 24 - 48 hours
Subjective/Interval History
-
Date of Service: September 09, 2024
Patient was comfortable.
Objective Data
-
Labs:
Laboratory Results
09/09/24
05:50
WBC 13.5 H
Hgb 9.4 L
Hct 26.8 L
Plt Count 530 H
Sodium 135
Potassium 5.0
Chloride 108 H
Carbon Dioxide 16 L
BUN 43 H
Creatinine 3.3 H
Glucose 259 H
Calcium 8.1 L
Total Bilirubin 0.7
AST 23
ALT 19
Alkaline Phosphatase 155 H
Vital Signs:
Vital Signs
Temp Pulse Resp BP Pulse Ox
98.1 F 88 18 93/45 94
09/08/24 19:00 09/08/24 21:27 09/08/24 19:00 09/08/24 19:00 09/08/24 21:27
I&O
09/08/24 09/09/24 09/10/24
06:59 06:59 06:59
Intake Total 240 / 240 240 / 240
Output Total 700 / 700 100 / 100
Balance -460 / -460 140 / 140
Review of Systems
-
All other systems: Reviewed and negative
Physical Exam
-
General: No Apparent Distress and Comfortable
HEENT: Normocephalic and Atraumatic
Respiratory: Crackles (Basilar)
Cardiac: Regular Rhythm and S1/S2
GI: Soft, Nontender, Nondistended and Normal Bowel Sounds
Skin: Warm and Dry
Neuro: Awake, Alert, Oriented and AO x 3
Psych: Calm
[2024-09-09 08:08] LABS: Glucose - Point of Care 370 mg/dl (70-99)
[2024-09-09] MEDS: COLACE PO (09:11)
[2024-09-09 11:00] VITALS: BP 104/63
[2024-09-09 12:11] LABS: Glucose - Point of Care 474 mg/dl (70-99)
--- NOTE | 2024-09-09 13:54 | HOSPNOTE ---
HOSPICE NURSE MET WITH PATIENT, SPOUSE, AND SON TWIN. TWIN IS THE POA/PRIMARY CONTACT. THEY ARE IN AGREEMENT TO RESPECT PATIENTS WISHES AND FOCUS ON COMFORT. PATIENT MEETS INPATIENT HOSPICE CRITERIA FOR THE MANAGEMENT OF DYSPNEA THAT COULD NOT BE
MANAGED IN THE OUTPATIENT SETTING. ATTENDING IN AGREEMENT. BED REQUESTED ON . PATIENT WILL BE SIGNED ONTO INPATIENT HOSPICE TOMORROW MORNING. MING MURCIA WILL MEET WITH KYLIE TO SIGN CONSENTS. EMOTIONAL SUPPORT PROVIDED.
[2024-09-09] MEDS: ATIVAN 1 MG PO (15:32)
--- NOTE | 2024-09-09 18:28 | PTCARENOTE ---
called report to RN on , transferred pt to room 2140, discussed with pt's new nurse
[2024-09-09 18:37] LABS: Transferrin 182 mg/dL (200-360)
--- NOTE | 2024-09-09 19:12 | PTCARENOTE ---
received pt from [facility], on comfort measures pt working hard on breathing, IV morphine given for comfort.
pt peaceful in the room, no family at bedside. overnight TELECOMMUNICATOR SUPERVISOR made aware, family notified.
--- NOTE | 2024-09-09 19:15 | W.PN.DEATH ---
Pronouncement of
-
Called to see patient to pronounce.
No spontaneous heart tones or respirations noted.
Patient not responsive to verbal stimuli.
Patient is pronounced .
Time of : 19:10
Date of : 09/09/24
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
Family Notified: Yes (son katia)
== END 2024-09-09 19:10 | disposition expired ==
LOC: 2 NORTH 12:56
PROVIDERS: Student in an Organized Health Care Education/Training Program; ADMITTING PHYSICIAN Internal Medicine; CONSULT PHYSICIAN Internal Medicine Cardiovascular Disease; EMERGENCY PHYSICIAN Emergency Medicine; FAMILY PHYSICIAN Internal Medicine
DX: I25.5 Ischemic cardiomyopathy (principal); I50.23 Acute on chronic systolic (congestive) heart failure; I21.4 Non-ST elevation (NSTEMI) myocardial infarction; I11.0 Hypertensive heart disease with heart failure; E78.00 Pure hypercholesterolemia, unspecified; Z66 Do not resuscitate; I25.2 Old myocardial infarction; K21.9 Gastro-esophageal reflux disease without esophagitis; R54 Age-related physical debility; Z79.02 Long term (current) use of antithrombotics/antiplatelets; Z79.899 Other long term (current) drug therapy; Z79.4 Long term (current) use of insulin; Z79.82 Long term (current) use of aspirin; D72.829 Elevated white blood cell count, unspecified; D64.9 Anemia, unspecified; D75.838 Other thrombocytosis; E10.9 Type 1 diabetes mellitus without complications; I25.10 Atherosclerotic heart disease of native coronary artery without angina pectoris; Z88.1 Allergy status to other antibiotic agents; Z88.3 Allergy status to other anti-infective agents; Z91.199 Patient's noncompliance with other medical treatment and regimen due to unspecified reason
CPT/HCPCS: 71275; 80053; 82728; 82962; 83540; 83550; 83605; 83735; 83880; 84466; 84484; 85025; 85027; 85610; 93005; 96374; 99285; Q9967